=== PATIENT | male | born 1940 | race Caucasian/White ===

== ENCOUNTER 2018-05-18 12:16 | Inpatient (IN) | payer MEDICARE, MEDICAID ==
--- NOTE | 2018-05-18 13:36 | RAD ---
Date of service: 05/18/2018 HISTORY: Cough and fever COMPARISON: No prior. FINDINGS: LUNGS: There appears to be mild central pulmonary venous congestive changes with more confluent opacities in the lower lobes possibly representing alveolar-type infiltrates. Questionable small bilateral effusions.. PLEURA: As above. No pneumothorax apparent. CARDIOVASCULAR: Mild aortic atherosclerotic calcification present. Cardiomegaly. Also again noted are sternotomy wires and multi lead pacemaker/defibrillator. OSSEOUS STRUCTURES: No significant abnormalities. VISUALIZED UPPER ABDOMEN: Normal. OTHER FINDINGS: None. IMPRESSION: There appears to be mild central pulmonary venous congestive changes with more confluent opacities in the lower lobes possibly representing alveolar-type infiltrates. Questionable small bilateral effusions..
[2018-05-18 13:48] LABS: BASO # 0.04 {null, K/mm3} (0.0-2.0); BASO % 0.2 % (0.0-3.0); EOS # 0.2 (0.0-0.7); EOS % 0.9 % (1.5-5.0); HEMOGLOBIN 11.6 g/dL (14.0-18.0); LYMPH # 1.3 (1.2-3.4); MEAN CELL VOLUME 93.5 fl (80.0-105.0); MEAN CORPUSCULAR HEMOGLOBIN 31.6 pg (25.0-35.0); MEAN CORPUSCULAR HGB CONC 33.8 g/dl (31.0-37.0); MONO # 0.7 (0.1-0.6); MONO % 4.2 % (1.0-6.0); RBC 3.67 {null, 10^6/uL} (3.5-6.1); RED CELL DISTRIBUTION WIDTH 13.6 % (11.5-14.5); WHITE BLOOD COUNT 16.4 {null, 10^3/uL} (4.5-11.0)
[2018-05-18 13:52] LABS: VENOUS BLOOD GAS BASE EXCESS 7.8 mmol/L (0.0-2.0); VENOUS BLOOD GAS PO2 70 mm/Hg (30-55); VENOUS BLOOD PH 7.49 (7.32-7.43)
[2018-05-18 14:02] LABS: ALBUMIN 3.7 g/dL (3.0-4.8); ALT/SGPT 19 U/L (7-56); AST/SGOT 35 U/L (17-59); BLOOD UREA NITROGEN 47 mg/dL (7-21); CALCIUM 10.6 mg/dL (8.4-10.5); GFR NON-AFRICAN AMERICAN 49; LIPASE 199 U/L (23-300)
[2018-05-18 14:07] LABS: PARTIAL THROMBOPLASTIN TIME 46.2 Seconds (26.9-38.3)
[2018-05-18 14:14] LABS: B-TYPE NATRIURETIC PEPTIDE 5610 pg/mL (0-450); TROPONIN I 0.05 ng/mL
--- NOTE | 2018-05-18 14:17 | ED PDOC ---
Arrival/HPI - General Chief Complaint: Cough, Cold, Congestion Historian: Patient - History of Present Illness Narrative History of Present Illness (Text): 05/18/18 14:24 A 77 year old male, whose past medical history includes pacemaker, dementia and Parkinson's disease, accompanied by , presents to the emergency department complaining of productive cough, vomiting, and chills for 4 weeks. Patient's reports patient is incontinent at baseline and recently urine has been foul-smelling. Also, patient has recently not been himself, as he is not talking as much as he normally does. also says the patient normally ambulates w/a walker, however now no longer is able to ambulate even with it. denies any falls, fever, or any other complaints at this time. PMD: Dr. Clay Henry Past Medical History - Provider Review Nursing Documentation Reviewed: Yes - Infectious Disease Hx of Infectious Diseases: None - Cardiac Hx Congestive Heart Failure: Yes Hx Hypertension: Yes Hx Pacemaker: Yes (BIV AICD) - Pulmonary Hx Asthma: Yes - Neurological Hx Alzheimer's Disease: Yes - Musculoskeletal/Rheumatological Hx Falls: No - Genitourinary/Gynecological Hx Prostate Problems: Yes - Psychiatric Hx Substance Use: No - Surgical History Hx Coronary Artery Bypass Graft: Yes (?) - Anesthesia Hx Anesthesia: Yes Hx Anesthesia Reactions: No Hx Malignant Hyperthermia: No - Suicidal Assessment Feels Threatened In Home Enviroment: No Family/Social History - Physician Review Nursing Documentation Reviewed: Yes Family/Social History: No Known Family HX Smoking Status: Never Smoked Hx Alcohol Use: No Hx Substance Use: No Allergies/Home Meds Allergies/Adverse Reactions: Allergies morphine Allergy (Verified 05/18/18 12:31) RASH Home Medications: Home Meds Medication Instructions Recorded Confirmed RX: Digoxin 0.125 mg PO DAILY 07/31/14 06/11/17 RX: Donepezil [Aricept] 5 mg PO DAILY 07/31/14 06/11/17 RX: Folic Acid/Vit A/Vit B1/Vit 1 tab PO DAILY 07/31/14 06/11/17 [Multivitamin] RX: Simvastatin 20 mg PO HS 07/31/14 06/11/17 RX: Warfarin Sodium 6 mg PO DAILY 07/31/14 06/11/17 RX: amLODIPine [Norvasc] 5 mg PO DAILY 07/31/14 06/11/17 RX: Tamsulosin HCl [Flomax] 0.4 mg PO DAILY 06/11/17 06/11/17 Review of Systems - Physician Review All systems were reviewed & negative as marked: Yes - Review of Systems Constitutional: Night Sweats Respiratory: Cough (productive) Gastrointestinal: Vomiting Genitourinary Male: Other (incontinence baseline, recently foul-smelling urine.) Physical Exam Vital Signs Reviewed: Yes Vital Signs Temp Pulse Resp BP Pulse Ox 05/18/18 13:53 69 18 117/59 L 96 05/18/18 12:58 100.3 F H 05/18/18 12:27 70 95 05/18/18 12:26 98.9 F 72 18 119/56 L 95 Temperature: Afebrile Blood Pressure: Normal Pulse: Regular Respiratory Rate: Normal Appearance: Positive for: Well-Appearing, Non-Toxic Pain Distress: None Mental Status: No: Alert and Oriented X 3 (alert and oriented x 1) - Systems Exam Head: Present: Atraumatic, Normocephalic Extroacular Muscles: Present: EOMI Conjunctiva: Present: Normal Mouth: Present: Dry Neck: Present: Normal Range of Motion Respiratory/Chest: Present: Wheezes (expiratory), Decreased Breath Sounds (bilaterally). No: Rales, Rhonchi Cardiovascular: Present: Murmurs (systolic) Abdomen: No: Tenderness, Distention, Peritoneal Signs Rectal: No: Nodule/Mass/Lesions Back: Present: Normal Inspection Upper Extremity: Present: Normal Inspection. No: Cyanosis, Edema Lower Extremity: Present: Normal Inspection. No: Edema Neurological: Present: GCS=15, CN II-XII Intact, Speech Normal Skin: Present: Warm, Dry, Normal Color. No: Rashes Psychiatric: Present: Alert. No: Oriented x 3 (oriented x 1) Medical Decision Making ED Course and Treatment: 05/18/18 14:39 Impression: 77 year old male with productive cough, vomiting, and chills Plan: -- EKG -- Venous Blood Gas -- Rocephin -- Blood Culture -- Urine Culture -- Labs -- Chest X-Ray -- Urinalysis -- Influenza A/B -- Reassess and disposition Progress Notes: EKG: Ordered, reviewed, and independently interpreted the EKG. Rate : 72 BPM Rhythm : Pacemaker Interpretation : No ST-segment elevations or depressions, no T-wave inversions, normal intervals. Comparison : No previous EKG for comparison. Pt w/elevated wbc, pna on cxr. Abx ordered. Plan admit for further evaluation and management. 14:50 Case d/w Dr. Hill who accepts pt to her service. - Lab Interpretations Lab Results: pO2 70 mm/Hg (30-55) H 05/18/18 13:30 VBG pH 7.49 (7.32-7.43) H 05/18/18 13:30 VBG pCO2 42.0 (40-60) 05/18/18 13:30 VBG HCO3 32.0 mmol/l (21-28) H 05/18/18 13:30 VBG Total CO2 33.3 mmol.L (22-28) H 05/18/18 13:30 VBG O2 Sat (Calc) 97.0 % (40-65) H 05/18/18 13:30 VBG Base Excess 7.8 mmol/L (0.0-2.0) H 05/18/18 13:30 VBG Potassium 3.6 mmol/L (3.6-5.2) 05/18/18 13:30 Sodium 146.0 mmol/L (132-148) 05/18/18 13:30 Chloride 111.0 mmol/L (98-107) H 05/18/18 13:30 Glucose 124 mg/dl (75-110) H 05/18/18 13:30 Lactate 1.2 mmol/L (0.7-2.1) 05/18/18 13:30 FiO2 21.0 % 05/18/18 13:30 APTT 46.2 Seconds (26.9-38.3) H 05/18/18 13:30 Total Bilirubin 0.7 mg/dL (0.2-1.3) 05/18/18 13:30 AST 35 U/L (17-59) 05/18/18 13:30 ALT 19 U/L (7-56) 05/18/18 13:30 Alkaline Phosphatase 111 U/L (38-126) 05/18/18 13:30 Total Protein 7.5 g/dL (5.8-8.3) 05/18/18 13:30 Albumin 3.7 g/dL (3.0-4.8) 05/18/18 13:30 Globulin 3.8 gm/dL 05/18/18 13:30 Albumin/Globulin Ratio 1.0 (1.1-1.8) L 05/18/18 13:30 Lipase 199 U/L (23-300) 05/18/18 13:30 - RAD Interpretation Radiology Orders: 05/18/18 13:03 CHEST PORTABLE [RAD] Stat - Scribe Statement The provider has reviewed the documentation as recorded by the Anjelica Phillips Provider Scribe Attestation: All medical record entries made by the Maynoribkim were at my direction and personally dictated by me. I have reviewed the chart and agree that the record accurately reflects my personal performance of the history, physical exam, medical decision making, and the department course for this patient. I have also personally directed, reviewed, and agree with the discharge instructions and disposition. Disposition/Present on Arrival - Present on Arrival Any Indicators Present on Arrival: No History of DVT/PE: No History of Uncontrolled Diabetes: No Urinary Catheter: No History of Decub. Ulcer: No - Disposition Have Diagnosis and Disposition been Completed?: Yes Diagnosis: Pneumonia, CHF (congestive heart failure), Dehydration Disposition: HOSPITALIZED Disposition Time: 14:50 Patient Plan: Admission Patient Problems: Current Active Problems Problem Status Onset Dehydration Acute Pneumonia Acute CHF (congestive heart failure) Chronic Condition: STABLE
[2018-05-18 14:21] LABS: PH,URINE 7.5 (4.7-8.0); URINE BILIRUBIN NEGATIVE (NEGATIVE); URINE BLOOD NEGATIVE (NEGATIVE); URINE GLUCOSE (UA) NEGATIVE (NEGATIVE); URINE LEUKOCYTE ESTERASE NEGATIVE Leu/uL (NEGATIVE); URINE PROTEIN NEGATIVE mg/dL (<30 mg/dL)
[2018-05-18] MEDS ORDERED: Azithromycin 500MG/NS 250ml 500 MG/250 ML BAG IVPB STA (14:22)
[2018-05-18 14:26] LABS: URINE APPEARANCE CLEAR (CLEAR); URINE COLOR YELLOW (YELLOW)
[2018-05-18] MEDS ORDERED: cefTRIAXone 1 gm 1 GM/100 ML BAG IVPB ONE (14:30)
[2018-05-18 14:32] LABS: INR 5.16; PROTHROMBIN TIME 58.3 SECONDS (9.4-12.5)
[2018-05-18] MEDS ORDERED: WARFARIN SODIUM 6 MG PO SCH (17:45)
--- NOTE | 2018-05-18 19:58 | CARD ---
APPROVED REPORT Date of service: 05/18/2018 EKG Measurement Heart [id number] <Conclusion> Poor data quality, interpretation may be adversely affected Electronic ventricular pacemaker
[2018-05-18 20:15] LABS: HDL CHOLESTEROL 31 mg/dL (29-60)
[2018-05-18 20:26] LABS: LDL CHOLESTEROL 32 mg/dL (0-129)
[2018-05-18 20:28] LABS: TROPONIN I 0.06 ng/mL
[2018-05-18] MEDS: Albuterol-Ipratrop 3 mg / 0.5 (3 ml) UD IH SCH (21:00)
[2018-05-18 23:42] VITALS: BMI 26.4
[2018-05-19] MEDS: Albuterol-Ipratrop 3 mg / 0.5 (3 ml) UD IH SCH ×4 (02:50→21:39)
[2018-05-19 07:07] LABS: BASO # 0.04 {null, K/mm3} (0.0-2.0); BASO % 0.2 % (0.0-3.0); EOS # 0.1 (0.0-0.7); EOS % 0.6 % (1.5-5.0); HEMOGLOBIN 11.2 g/dL (14.0-18.0); LYMPH # 1.3 (1.2-3.4); LYMPH % 8.1 % (22.0-35.0); MEAN CELL VOLUME 94.7 fl (80.0-105.0); MEAN CORPUSCULAR HEMOGLOBIN 31.2 pg (25.0-35.0); MEAN CORPUSCULAR HGB CONC 32.9 g/dl (31.0-37.0); MEAN PLATELET VOLUME 11.6 fl (7.0-11.0); MONO # 0.9 (0.1-0.6); MONO % 5.8 % (1.0-6.0); RBC 3.59 {null, 10^6/uL} (3.5-6.1); RED CELL DISTRIBUTION WIDTH 13.7 % (11.5-14.5); WHITE BLOOD COUNT 16.2 {null, 10^3/uL} (4.5-11.0)
[2018-05-19 07:20] LABS: INR 4.57; PROTHROMBIN TIME 51.6 SECONDS (9.4-12.5)
[2018-05-19 07:54] LABS: FREE T4 0.85 ng/dL (0.78-2.19)
[2018-05-19 08:58] LABS: ALBUMIN 3.4 g/dL (3.0-4.8); ALT/SGPT 27 U/L (7-56); AST/SGOT 26 U/L (17-59); BLOOD UREA NITROGEN 40 mg/dL (7-21); CALCIUM 10.4 mg/dL (8.4-10.5); GFR NON-AFRICAN AMERICAN 58
[2018-05-19] MEDS: cefTRIAXone 1 gm 1 GM/100 ML BAG IVPB SCH (09:46)
[2018-05-19] MEDS: Azithromycin 500MG/NS 250ml 500 MG/250 ML BAG IVPB SCH (09:46)
--- NOTE | 2018-05-19 10:35 | CT ---
Date of service: 05/18/2018 PROCEDURE: CT HEAD WITHOUT CONTRAST. HISTORY: AMS COMPARISON: No prior study available comparison. TECHNIQUE: Axial computed tomography images were obtained through the head/brain without intravenous contrast. Radiation dose: Total exam DLP = 949.77 mGy-cm. This CT exam was performed using one or more of the following dose reduction techniques: Automated exposure control, adjustment of the mA and/or kV according to patient size, and/or use of iterative reconstruction technique. FINDINGS: HEMORRHAGE: No acute parenchymal, subarachnoid nor extra-axial hemorrhage. BRAIN: There are discrete chronic appearing infarcts seen in the left posterior temporoparietal watershed zone, right frontal lobe as well as left cerebellar hemisphere. Additionally, the there are multiple bilateral chronic appearing lacunar type infarcts. Moderate to significant diffuse and confluent chronic periventricular white matter ischemic changes are also seen extending peripherally into deep and subcortical white matter both cerebral hemispheres. Questionable few chronic brainstem lacunar type infarcts. Note that possibility of a small hyperacute infarct not excluded on this study. Moderate to significant generalized volume loss Vascular calcifications both carotid siphons. No obvious parenchymal nor extra-axial masses or collections. VENTRICLES: No obstructive hydrocephalus. CALVARIUM: Calvarium intact PARANASAL SINUSES: There is mild to moderate mucosal thickening within the ethmoid air complex extending superiorly into the frontal sinus. There is near complete opacification right chamber of the sphenoid sinus. Mild mucosal thickening both maxillary antra. Note made of polypoid like density within the nasopharynx which could represent inspissated secretion however possibility of a exophytic polyp not excluded. ENT consultation is recommended further evaluation. MASTOID AIR CELLS: Unremarkable as visualized. No inflammatory changes. OTHER FINDINGS: The changes of bilateral cataract surgery. IMPRESSION: There are discrete chronic appearing infarcts seen in the left posterior temporoparietal watershed zone, right frontal lobe as well as left cerebellar hemisphere. Additionally, the there are multiple bilateral chronic appearing lacunar type infarcts. Moderate to significant diffuse and confluent chronic periventricular white matter ischemic changes are also seen extending peripherally into deep and subcortical white matter both cerebral hemispheres. Questionable few chronic brainstem lacunar type infarcts. Note that possibility of a small hyperacute infarct not excluded on this study. Moderate to significant generalized volume loss Note made of polypoid like density within the nasopharynx which could represent inspissated secretion however possibility of a exophytic polyp not excluded. ENT consultation is recommended further evaluation.
--- NOTE | 2018-05-19 14:54 | CT ---
Date of service: 05/18/2018 PROCEDURE: CT Chest without contrast HISTORY: Shortness of breath COMPARISON: No prior study available for comparison however correlation made with chest radiograph 05/18/2017. TECHNIQUE: Contiguous axial images were obtained through the chest without intravenous contrast enhancement. Sagittal and coronal reconstructions were performed. Radiation dose: Total exam DLP = 381.29 mGy-cm. This CT exam was performed using one or more of the following dose reduction techniques: Automated exposure control, adjustment of the mA and/or kV according to patient size, and/or use of iterative reconstruction technique. FINDINGS: LUNGS: Patchy bilateral ground-glass opacities are present within a relative batwing configuration. Findings are consistent with pulmonary venous congestion on. More patchy alveolar-type infiltrates present in the lower lobes. Small bilateral effusions right larger than left. MEDIASTINUM: Sternotomy wires and in situ multi lead pacemaker/defibrillator again noted. Heart is markedly enlarged. The ascending thoracic aorta is dilated measuring approximately 0.2 cm. Descending thoracic aorta measures approximately 2.75 cm. Mild aortic atherosclerotic calcification trunk measures approximately 3.4 cm.. There are multiple small to mildly enlarged mediastinal lymph nodes the largest pretracheal lymph node measures approximately 19 mm. Evaluation for hilar adenopathy is limited due to the lack of circulating intravenous contrast material. Trachea midline and patent with no large central endoluminal lesions. There is a small hiatal hernia. PLEURA: No pleural fluid. No pneumothorax. BONES: Multilevel degenerative spondylosis of the thoracic spine. UPPER ABDOMEN: Grossly unremarkable. OTHER FINDINGS: None. IMPRESSION: Patchy bilateral ground-glass opacities are present within a relative batwing configuration. Findings are consistent with pulmonary venous congestion. More patchy alveolar-type infiltrates present in the lower lobes. Small bilateral effusions right larger than left. There is aneurysmal dilatation of the ascending thoracic aorta as above. Marked cardiomegaly. Multiple small to mildly enlarged mediastinal lymph nodes as above.
[2018-05-19] MEDS: Digoxin 125 mcg (0.125 mg) Tab PO SCH (18:08)
--- NOTE | 2018-05-19 19:53 | PN ---
DATE: 05/19/2018 SUBJECTIVE: The patient is a 77-year-old, seen and examined, at the bedside. noticed that his urine is foul smelling, he is coughing for almost a month. His oral intake is poor, so he was brought to ER for further evaluation. PHYSICAL EXAMINATION: GENERAL: He was more lethargic last night, but he seems to be awake and alert and answer simple question, and not in any acute distress. VITAL SIGNS: He is afebrile, pulse 70, respirations 16, and blood pressure 129/50. LUNGS: Bilateral soft crackle in the upper lung region. HEART: S1 and S2 audible. ABDOMEN: Soft and nontender. No rebound. No guarding. NEUROLOGIC: The patient is awake and alert, but confused and disoriented. EXTREMITIES: Bilateral legs no edema. LABORATORY DATA: WBC 16.2, hemoglobin 11.2, hematocrit 34, and platelets 265. PT 51.6 and INR 4.57. Chemistry; sodium 144, potassium 3.9, chloride 109, CO2 of 29, BUN 14, creatinine 1.2, and blood sugar 110. Thyroid profile is negative. Urinalysis is unremarkable. Digoxin level is 1.7. Flu test is negative. He had CT scan of the head done that shows chronic appearing infarct in the left posterior temporoparietal watershed zone and cerebellar hemisphere. Multiple bilateral chronic-appearing lacunar infarct. CT of the chest patchy bilateral ground-glass opacities relatively bilateral ground-glass opacity consistent with pulmonary venous congestion and patchy alveolar infiltrate with small bilateral pleural effusion. ASSESSMENT: 1. Altered mental status. 2. Bilateral pneumonia. 3. Mild congestive heart failure. 4. Parkinson's disease. 5. Hyperlipidemia. PLAN: We will continue the patient on Zithromax, continue on Rocephin, and continue nebulizer treatment. Followup echocardiogram and out of bed to chair. According to family, he has been bed bound, does not walk much, and we will reevaluate the patient in a.m. Melany Hill MD
[2018-05-20 07:08] LABS: BASO # 0.02 {null, K/mm3} (0.0-2.0); BASO % 0.1 % (0.0-3.0); EOS # 0.1 (0.0-0.7); EOS % 0.7 % (1.5-5.0); LYMPH # 1.4 (1.2-3.4); LYMPH % 10.4 % (22.0-35.0); MEAN CELL VOLUME 94.4 fl (80.0-105.0); MEAN CORPUSCULAR HGB CONC 32.8 g/dl (31.0-37.0); MEAN PLATELET VOLUME 10.8 fl (7.0-11.0); MONO % 7.1 % (1.0-6.0); RBC 3.55 {null, 10^6/uL} (3.5-6.1); RED CELL DISTRIBUTION WIDTH 13.5 % (11.5-14.5); WHITE BLOOD COUNT 13.5 {null, 10^3/uL} (4.5-11.0)
[2018-05-20 07:37] LABS: ALB/GLOB RATIO 0.9 (1.1-1.8); ALBUMIN 3.6 g/dL (3.0-4.8); ALT/SGPT 12 U/L (7-56); AST/SGOT 43 U/L (17-59); BLOOD UREA NITROGEN 37 mg/dL (7-21); CALCIUM 9.8 mg/dL (8.4-10.5); GFR NON-AFRICAN AMERICAN > 60
[2018-05-20] MEDS: Albuterol-Ipratrop 3 mg / 0.5 (3 ml) UD IH SCH ×3 (07:50→20:54)
--- NOTE | 2018-05-20 08:17 | HP ---
DATE OF EXAM: 05/18/2018 HISTORY OF PRESENT ILLNESS: The patient is 77-year-old who was brought to emergency room by his because of increasing cough, congestion and fever. He vomited once. He was having intermittent cough for couple of weeks. Daughter was at the bedside. Also reports that he is very increasingly confused and noticed urine is concentrated and foul smelling. His oral intake has decreased also. He has been lately bed bound and has not been working. Although, he used to ambulate somewhat prior to this sickness. PAST MEDICAL HISTORY: Significant for: 1. Parkinson's disease. 2. Hypertension. 3. Hyperlipidemia. 4. Chronic atrial fibrillation. 5. Status post pacemaker placement. ALLERGIES: HE IS ALLERGIC TO MORPHINE. MEDICATION AT HOME: He is on amlodipine 5 mg daily, Coumadin 6 mg daily, Flomax 0.4 daily, simvastatin 20 mg daily, enalapril 5 mg daily, digoxin 0.125 daily, Coreg 12.5 daily, aspirin 81 daily, Lasix 40 mg daily and folic acid. SOCIAL HISTORY: No smoking or drinking as per daughter. PHYSICAL EXAMINATION: GENERAL: He is confused and disoriented. VITAL SIGNS: He has temperature 100.5, pulse 72, respiration 19, blood pressure 122/66. LUNGS: Bilateral fair airflow, expiratory rhonchi. Soft crackle in the lower lung region. HEART: S1 and S2, audible. Tachycardic. ABDOMEN: Soft, nontender. No rebound. No guarding. NEUROLOGIC: He is awake and alert, but confused, disoriented. LABORATORY EXAM: WBC 16.4, hemoglobin 11.6, hematocrit 34.3, platelet 229. PT 58.3 and INR 5.16. Chemistry; sodium 142, potassium 3.8, chloride 107, CO2 of 30, BUN 47, creatinine 1.4, and blood sugar 123 . His CPK less than 20. BNP 5610. Urinalysis is unremarkable. Digoxin level 147. Flu test is negative. CT scan of the head is unremarkable. X-ray chest shows mild central pulmonary investigations with more confluent of the lower lobes possibly representing alveolar infiltrate with bilateral pleural effusion. ASSESSMENT: 1. Community-acquired pneumonia. 2. Leukocytosis. 3. Parkinson's disease. 4. Mild renal insufficiency. 5. Coagulopathy. PLAN: So plan is, we will start him on Iv antibiotics, IV steroids, medications. I will order for CT scan of the chest. Get her a better definition of his infiltrate. Order for echocardiogram and we will reevaluate the patient in a.m. Melany Hill MD
[2018-05-20] MEDS: cefTRIAXone 1 gm 1 GM/100 ML BAG IVPB SCH (11:12)
[2018-05-20] MEDS: Azithromycin 500MG/NS 250ml 500 MG/250 ML BAG IVPB SCH (11:16)
[2018-05-20] MEDS ORDERED: Sodium Chloride 0.45% 1,000 ML IV SCH (12:00)
[2018-05-20] MEDS: Digoxin 125 mcg (0.125 mg) Tab PO SCH (13:43)
--- NOTE | 2018-05-20 15:57 | PN ---
DATE: 05/20/2018 SUBJECTIVE: The patient is 77-year-old, seemed lethargic. According to nurse, he was not able to handle oral tablet or feeding. PHYSICAL EXAMINATION: VITAL SIGNS: He is afebrile, pulse 70, respiration 20, and blood pressure 142/66. LUNGS: Bilateral soft crackle in upper lung region. HEART: S1 and S2 audible. ABDOMEN: Soft and nontender. No rebound. No guarding. NEUROLOGIC: The patient is sleeping, but arousable. Mumbles some words, unable to make any sense. EXTREMITIES: Bilateral leg, no edema. LABORATORY DATA: WBC 13.5, hemoglobin 11, hematocrit 33, and platelets 246. Chemistry; sodium 143, potassium 3.9, chloride 109, CO2 of 29, BUN 37, creatinine 1.1, and blood sugar of 105. Digoxin level is 1.7. Flu test is negative. Blood culture and urine cultures are negative; and according to who was at bedside that he is mostly he stays in the bed. CT scan of the chest shows patchy bilateral ground-glass opacities are present within a relative configuration consistent with pulmonary venous congestion and alveolar infiltrate, and CT of the brain shows subacute chronic infarct in the left posterior temporoparietal area, right frontal lobe, as well as the left cerebellar hemisphere; multiple bilateral chronic-appearing lacunar infarct, moderate to significant diffuse and confluent chronic periventricular white matter ischemic changes and generalized volume loss. ASSESSMENT: 1. Altered mental status. 2. Bilateral pneumonia. 3. Congestive heart failure. 4. History of Parkinson's disease. PLAN: This patient is not tolerating food, we will give IV fluids. Continue him on nebulizer treatment. He is on antibiotic Rocephin. Currently he is on Zithromax and Rocephin, we will continue that. Check his echo and neuro consult by Dr. Natarajan has been requested. Melany Hill MD
--- NOTE | 2018-05-20 15:59 | CARD ---
APPROVED REPORT Date of service: 05/20/2018 EXAM: Two-dimensional and M-mode echocardiogram with Doppler and color Doppler. INDICATION Dizziness and Vertigo 2D DIMENSIONS Left Atrium (2D)5.4 (1.6-4.0cm)IVSd1.6 (0.7-1.1cm) LVDd5.0 (3.9-5.9cm)LVOT Diameter2.3 (1.8-2.4cm) PWd1.7 (0.7-1.1cm) M-Mode DIMENSIONS Aortic Root4.10 (2.2-3.7cm)Aortic Cusp Exc.0.80 (1.5-2.0cm) Aortic Valve AoV Peak Qreeuufi784.0cm/sAoV VTI42.4cmAO Peak GR.22mmHg LVOT Peak Axwompcf68.2cm/sLVOT VTI18.10cmAO Mean GR.12mmHg SARINA (VMAX)1.78fn9TFF (VTI)1.60nw9CW P 1/2 Ektz114ti Mitral Valve E/A ratio0.0 TDI E/Lateral E'0.0E/Medial E'0.0 Pulmonary Valve PV Peak Phxdyqqt51.1cm/sPV Peak Grad.2mmHg Tricuspid Valve TR Peak Xuslqtcj624oa/sRAP FPPHLIPP13mvFcLP Peak Gr.32mmHg [id number] LEFT VENTRICLE The left ventricle is normal size. There is mild to moderate concentric left ventricular hypertrophy. The systolic function is moderately to severely impaired. Regional wall motion abnormalities noted. No left ventricle thrombus noted on this study. RIGHT VENTRICLE The right ventricle is normal size. There is normal right ventricular wall thickness. The right ventricular systolic function is normal. There is a pacemaker lead in the right ventricle. ATRIA The left atrium is moderately dilated. The right atrium is mildly dilated. AORTIC VALVE The aortic valve is moderately thickened. There is moderate to severe aortic regurgitation. There is trace valvular aortic stenosis. MITRAL VALVE The mitral valve is moderately thickened. Mitral regurgitation is moderate to severe. There is no mitral valve stenosis. TRICUSPID VALVE There is mild tricuspid regurgitation. There is mild pulmonary hypertension. GREAT VESSELS The aortic root is mildly enlarged. The IVC is normal in size and collapses >50% with inspiration. PERICARDIAL EFFUSION There is no pericardial effusion. <Conclusion> There is mild to moderate concentric left ventricular hypertrophy. The systolic function is moderately to severely impaired. Regional wall motion abnormalities noted. No left ventricle thrombus noted on this study. There is moderate to severe aortic regurgitation. Mitral regurgitation is moderate to severe. There is mild tricuspid regurgitation. There is mild pulmonary hypertension.
--- NOTE | 2018-05-20 19:28 | CON ---
DATE: 05/20/2018 HISTORY OF PRESENT ILLNESS: This is a 77-year-old male with past medical history of dementia, Parkinson's, and lives with and status post pacemaker. Came to the emergency room with a cough, vomiting, and chills for 4 weeks. Also has incontinent and foul smelling urine. Brought to the hospital. CAT scan of the head was done, which showed old Hard to evaluate the patient. PAST MEDICAL HISTORY: Parkinson's disease, hypertension, AFib, status post permanent pacemaker. ALLERGIES: TO MORPHINE. HOME MEDICATIONS: Dioxin, Aricept, Simvastatin, Warfarin, Norvasc, and Flomax. PHYSICAL EXAMINATION VITAL SIGNS: Blood pressure 119/56. HEENT: Normocephalic and atraumatic NECK: Supple. NEUROLOGIC: Awake, oriented to self, and not to the day and date. No aphasia. Cranial nerves II through XII are tested. Pupils reactive. Spontaneous movement of the extremities noted. Deep tendon reflexes 1+. Both plantars are downgoing. Sensory appears intact. Cerebellar gait deferred. IMPRESSION: A 77-year-old male who was admitted with productive cough, vomiting, and chills. Computerized tomography scan of the head showed old infracts. We will rule out any new stroke and we will repeat the computerized tomography scan of the head without contrast in the morning and carotid Doppler. Continue present management. We will follow up. Caleb Natarajan MD
[2018-05-21] MEDS: Albuterol-Ipratrop 3 mg / 0.5 (3 ml) UD IH SCH ×4 (02:01→20:07)
--- NOTE | 2018-05-21 09:45 | CT ---
Date of service: 05/21/2018 PROCEDURE: CT HEAD WITHOUT CONTRAST. HISTORY: F/U CT REGARDING QUESTIONABLE HYPERACUTE INFARCT COMPARISON: 05/18/2018 TECHNIQUE: Axial computed tomography images were obtained through the head/brain without intravenous contrast. Radiation dose: Total exam DLP = 872.57 mGy-cm. This CT exam was performed using one or more of the following dose reduction techniques: Automated exposure control, adjustment of the mA and/or kV according to patient size, and/or use of iterative reconstruction technique. FINDINGS: HEMORRHAGE: No intracranial hemorrhage. BRAIN: No mass effect or edema. Severe chronic microvascular changes are seen in the periventricular white matter. There is a chronic infarct in the left occipital lobe and right frontal lobe. There is also an old infarct in the left cerebellar hemisphere. No evidence of acute infarct VENTRICLES: Unremarkable. No hydrocephalus. CALVARIUM: Unremarkable. PARANASAL SINUSES: Unremarkable as visualized. No significant inflammatory changes. MASTOID AIR CELLS: Unremarkable as visualized. No inflammatory changes. OTHER FINDINGS: None IMPRESSION: No acute intracranial findings. No evidence of acute infarct
[2018-05-21] MEDS: cefTRIAXone 1 gm 1 GM/100 ML BAG IVPB SCH (09:46)
[2018-05-21] MEDS: Azithromycin 500MG/NS 250ml 500 MG/250 ML BAG IVPB SCH (09:50)
--- NOTE | 2018-05-21 10:01 | US ---
PROCEDURE: Very duplex ultrasound HISTORY: Carotid stenosis CVA PHYSICIAN(S): Chacho Blankenship MD. TECHNIQUE: Duplex sonography and color-flow Doppler were used to evaluate the carotid bifurcations and limited segments of the vertebral arteries bilaterally. Evaluation is limited by tortuous vessels FINDINGS: There is mild focal smooth heterogeneous plaque noted at the carotid bifurcations bilaterally. The peak systolic velocity in the proximal right internal carotid artery is 65 cm/sec. This corresponds to a 20 to 39% proximal right ICA stenosis. Unusual lack of diastolic flow was appreciated in the proximal ICA. Normal systolic velocities are noted in the proximal right external carotid artery. There is antegrade flow in the right vertebral artery. The peak systolic velocity in the proximal left internal carotid artery is 64 cm/sec. This corresponds to a 20 to 39% proximal left ICA stenosis. Once again the diastolic flow in the proximal ICA is minimal. Normal systolic velocities are noted in the proximal left external carotid artery. There is antegrade flow in the left vertebral artery with minimal diastolic flow IMPRESSION: 1. Bilateral 20-39% proximal ICA stenoses. In the proximal ICA bilaterally, there is minimal diastolic flow. This is of uncertain clinical significance 2. Antegrade flow in both vertebral arteries.
--- NOTE | 2018-05-21 12:18 | CP.PCM.PCO ---
Physician Communication Note - Physician Communication Note Physician Communication Note: delirium precautions. Keep bp stable. PT/OT eval.
--- NOTE | 2018-05-21 15:15 | PN ---
DATE: 05/21/2018 SUBJECTIVE: The patient is 77-year-old, seen and examined, seems to be more alert. Has productive cough. PHYSICAL EXAMINATION VITAL SIGNS: He is afebrile, pulse 73, respirations 20, and blood pressure 148/66. LUNGS: Bilateral soft crackle in the upper lung region. HEART: S1 and S2 audible. ABDOMEN: Soft and nontender. No rebound. No guarding. NEUROLOGIC: The patient is awake and alert, answer simple questions, but not . LABORATORY DATA: Urinalysis is unremarkable. Digoxin level is 1.7. Blood culture and urine cultures are negative. questionable old stroke, no new intracranial abnormality noted on repeat scan. ASSESSMENT: 1. Altered mental status., 2. Bilateral pneumonia. 3. Parkinson's disease. 4. Deconditioning and difficulty walking. PLAN: The patient's oral intake seems to be fair as long as somebody feed him. We will discontinue IV fluids. Continue his usual medications. Continue nebulizer treatment. We will continue on Zithromax and Rocephin. We will request for TCU evaluation. If the patient accepted to TCU, he can be transferred. Melany Hill MD
[2018-05-21] MEDS: Digoxin 125 mcg (0.125 mg) Tab PO SCH (15:26)
[2018-05-22] MEDS: Albuterol-Ipratrop 3 mg / 0.5 (3 ml) UD IH SCH ×4 (03:29→21:13)
[2018-05-22 07:07] LABS: BASO # 0.06 {null, K/mm3} (0.0-2.0); BASO % 0.5 % (0.0-3.0); EOS # 0.3 (0.0-0.7); EOS % 2.9 % (1.5-5.0); LYMPH # 1.5 (1.2-3.4); LYMPH % 13.8 % (22.0-35.0); MEAN CELL VOLUME 93.8 fl (80.0-105.0); MEAN CORPUSCULAR HEMOGLOBIN 31.3 pg (25.0-35.0); MEAN CORPUSCULAR HGB CONC 33.3 g/dl (31.0-37.0); MEAN PLATELET VOLUME 10.2 fl (7.0-11.0); MONO # 0.9 (0.1-0.6); MONO % 8.2 % (1.0-6.0); RBC 3.52 {null, 10^6/uL} (3.5-6.1); RED CELL DISTRIBUTION WIDTH 13.5 % (11.5-14.5)
[2018-05-22 07:13] LABS: INR 2.78; PROTHROMBIN TIME 31.4 SECONDS (9.4-12.5)
[2018-05-22 07:24] LABS: ALB/GLOB RATIO 0.9 (1.1-1.8); ALBUMIN 3.3 g/dL (3.0-4.8); ALT/SGPT 55 U/L (7-56); AST/SGOT 74 U/L (17-59); BLOOD UREA NITROGEN 29 mg/dL (7-21); CALCIUM 9.9 mg/dL (8.4-10.5); GFR NON-AFRICAN AMERICAN > 60
[2018-05-22] MEDS: Azithromycin 500MG/NS 250ml 500 MG/250 ML BAG IVPB SCH (09:15)
[2018-05-22] MEDS: cefTRIAXone 1 gm 1 GM/100 ML BAG IVPB SCH (09:15)
--- NOTE | 2018-05-22 14:55 | PN ---
DATE: 05/22/2018 SUBJECTIVE: The patient is 77-year-old, seen and examined. According to the nurse, he looks much more alert. He ate 80%. They tried to ambulate him yesterday, but he dropped his pulse ox rate in 80s. PHYSICAL EXAMINATION: GENERAL: He is awake, alert, oriented, and able to communicate. VITAL SIGNS: He is afebrile, pulse 73, respirations 20, and blood pressure 155/65. LUNGS: Bilateral soft crackle in lower lung region. HEART: S1 and S2 audible. ABDOMEN: Soft and nontender. No rebound. No guarding. NEUROLOGIC: The patient is awake, alert, oriented, and able to communicate. LABORATORY DATA: WBC 11, hemoglobin 11, hematocrit 33, and platelet 235. PT 31.4, INR 2.78. Chemistry: Sodium 144, potassium 3.8, chloride 111, CO2 of 28, BUN 29, creatinine 0.9, blood sugar of 105. AST 74, alk phos 142. Digoxin level is 1.7. Flu test is negative. CT scan of the head is unremarkable. ASSESSMENT: 1. Altered mental status. 2. Bilateral pneumonia. 3. Parkinson's disease. 4. Deconditioning and difficulty walking. 5. Mild dementia. PLAN: Currently, the patient is on Coreg, digoxin, nebulizer treatment. He is on Flomax, Lipitor. He is getting Rocephin and Zithromax. Depending on his therapy evaluation, the patient was be transferred to TCU to complete his course of antibiotic. Continue current medication. We will follow up the patient in the a.m. Melany Hill MD
[2018-05-22] MEDS: Digoxin 125 mcg (0.125 mg) Tab PO SCH (17:46)
[2018-05-23] MEDS: Albuterol-Ipratrop 3 mg / 0.5 (3 ml) UD IH SCH ×4 (01:57→19:52)
[2018-05-23] MEDS: cefTRIAXone 1 gm 1 GM/100 ML BAG IVPB SCH (10:37)
[2018-05-23] MEDS: Azithromycin 500MG/NS 250ml 500 MG/250 ML BAG IVPB SCH (10:38)
--- NOTE | 2018-05-23 14:58 | PN ---
DATE: 05/23/2018 SUBJECTIVE: The patient is 77-year-old, seen and examined, looks more alert, communicative, and eating better. Cough seemed to be improving. PHYSICAL EXAMINATION: VITAL SIGNS: He is afebrile, pulse 69, respiration 20, and blood pressure 146/60. LUNGS: Bilateral soft crackle, improving as compared to when he was admitted, bilaterally pronounced posteriorly. HEART: S1 and S2 audible. ABDOMEN: Soft and nontender. No rebound. No guarding. NEUROLOGIC: The patient is awake and alert, but somewhat confused and disoriented. EXTREMITIES: Bilateral leg, no edema. LABORATORY DATA: WBC 11.0, hemoglobin 11, hematocrit 33, and platelet 235. PT 31.4 and INR 2.78. Chemistry; sodium 144, potassium 3.8, chloride 111, CO2 of 28, BUN 29, creatinine 0.9, and blood sugar of 105. CT scan of the head was done, that seems to be unremarkable. ASSESSMENT: 1. Bilateral pneumonia, improving. 2. Parkinson's disease. 3. History of hypertension. 4. Deconditioning and difficulty walking. PLAN: Currently, the patient is on his usual medications including; digoxin, carvedilol, Aricept 10, Flomax, and he is on Zithromax. Continue Rocephin. TCU evaluation has been requested. If accepted, he can be transferred to TCU for his physical therapy and completion course of antibiotics. Melany Hill MD
[2018-05-23] MEDS: Digoxin 125 mcg (0.125 mg) Tab PO SCH (15:25)
[2018-05-24] MEDS: Albuterol-Ipratrop 3 mg / 0.5 (3 ml) UD IH SCH ×4 (01:17→20:29)
[2018-05-24 06:58] LABS: BASO # 0.05 {null, K/mm3} (0.0-2.0); BASO % 0.6 % (0.0-3.0); EOS # 0.3 (0.0-0.7); EOS % 3.9 % (1.5-5.0); HEMOGLOBIN 10.5 g/dL (14.0-18.0); LYMPH # 1.3 (1.2-3.4); LYMPH % 14.8 % (22.0-35.0); MEAN CELL VOLUME 92.7 fl (80.0-105.0); MEAN CORPUSCULAR HEMOGLOBIN 31.8 pg (25.0-35.0); MEAN CORPUSCULAR HGB CONC 34.3 g/dl (31.0-37.0); MEAN PLATELET VOLUME 10.4 fl (7.0-11.0); MONO # 0.5 (0.1-0.6); MONO % 5.7 % (1.0-6.0); RBC 3.3 {null, 10^6/uL} (3.5-6.1); RED CELL DISTRIBUTION WIDTH 13.3 % (11.5-14.5); WHITE BLOOD COUNT 8.8 {null, 10^3/uL} (4.5-11.0)
[2018-05-24 07:01] LABS: INR 1.74; PROTHROMBIN TIME 19.7 SECONDS (9.4-12.5)
[2018-05-24 07:33] LABS: ALB/GLOB RATIO 0.9 (1.1-1.8); ALBUMIN 3.2 g/dL (3.0-4.8); ALT/SGPT 67 U/L (7-56); AST/SGOT 71 U/L (17-59); BLOOD UREA NITROGEN 25 mg/dL (7-21); CALCIUM 9.6 mg/dL (8.4-10.5); GFR NON-AFRICAN AMERICAN > 60
[2018-05-24] MEDS: cefTRIAXone 1 gm 1 GM/100 ML BAG IVPB SCH (10:47)
[2018-05-24] MEDS: Digoxin 125 mcg (0.125 mg) Tab PO SCH (14:44)
--- NOTE | 2018-05-24 15:25 | PN ---
DATE: 05/24/2018 SUBJECTIVE: The patient is 77-year-old, seen and examined. Looks much more alert, able to communicate. PHYSICAL EXAMINATION: VITAL SIGNS: He is afebrile, pulse 70, respiration 20, and blood pressure 140/60. LUNGS: Bilateral fair airflow. Bilateral crackle seems to be improving. ABDOMEN: Soft and nontender. No rebound. No guarding. NEUROLOGIC: He is awake and alert. Able to communicate, has language barrier though. EXTREMITIES: Bilateral leg, no edema. LABORATORY DATA: WBC is 8.8, hemoglobin 10.5, hematocrit 30.6, and platelet 242. His PT 19.7 and INR 1.74. Chemistry; sodium 138, potassium 4.1, chloride 109, CO2 of 24, BUN 25, creatinine 0.8, and blood sugar of 96. AST 71, ALT 67 and alk phos 143. Digoxin level is 1.7. ASSESSMENT: 1. Status post altered mental status secondary to systemic inflammatory response syndrome. 2. Bilateral pneumonia. 3. History of Parkinson's disease. 4. Deconditioning and difficulty walking. 5. Dementia. 6. Status post pacemaker placement. PLAN: We will continue the patient on current nebulizer treatment. He is on Rocephin and he is on Zithromax. We will continue that. We will give him 8 mg of Coumadin today. We will follow up PT/INR in a.m. Melany Hill MD
[2018-05-25] MEDS: Albuterol-Ipratrop 3 mg / 0.5 (3 ml) UD IH SCH ×4 (02:52→19:36)
[2018-05-25 06:43] LABS: INR 2.12; PROTHROMBIN TIME 23.9 SECONDS (9.4-12.5)
[2018-05-25] MEDS: cefTRIAXone 1 gm 1 GM/100 ML BAG IVPB SCH (11:11)
[2018-05-25] MEDS: Digoxin 125 mcg (0.125 mg) Tab PO SCH ×2 (15:43→15:44)
--- NOTE | 2018-05-25 16:00 | PN ---
DATE: 05/25/2018 SUBJECTIVE: The patient is a 77-year-old, seen and examined, somewhat confused and disoriented, eating well. PHYSICAL EXAMINATION: VITAL SIGNS: He is afebrile. Pulse 70, respirations 18, blood pressure 159/62. LUNGS: Bilateral fair airflow. No rhonchi or crackles. HEART: S1 and S2 audible. ABDOMEN: Soft, nontender. No rebound, no guarding. NEUROLOGICAL: He is awake and alert, but not very communicative, somewhat confused and disoriented. LABORATORY DATA: PT 23.9, INR 2.12. Blood cultures and urine cultures are negative. ASSESSMENT AND PLAN: 1. Status post altered mental status. 2. Parkinson's disease. 3. Bilateral pneumonia. 4. Status post pacemaker placement. PLAN: Currently, the patient is on nebulizer treatment. He is getting Rocephin. He is on Zithromax and will continue that. Continue nebulizer treatment. We will reevaluate the patient in a.m. Melany Hill MD
[2018-05-26] MEDS: Albuterol-Ipratrop 3 mg / 0.5 (3 ml) UD IH SCH ×4 (01:48→20:06)
[2018-05-26] MEDS ORDERED: guaiFENesin DM 100 mg-10 mg/5 ml UD PO ONE (03:13)
[2018-05-26] MEDS: guaiFENesin 200 mg/10 ml Syrup UD PO PRN (08:54)
[2018-05-26] MEDS: cefTRIAXone 1 gm 1 GM/100 ML BAG IVPB SCH (09:21)
[2018-05-26] MEDS: Digoxin 125 mcg (0.125 mg) Tab PO SCH (13:49)
--- NOTE | 2018-05-26 20:32 | PN ---
DATE: 05/26/2018 SUBJECTIVE: The patient does not complain of any chest pain. No shortness of breath. No headache. PHYSICAL EXAMINATION VITAL SIGNS: Temperature is 99.1, pulse of 82, blood pressure is 151/90, respiration is 22. GENERAL: The patient is lying in bed, flat, comfortable. HEENT: No oral lesion. Anicteric sclerae. Moist mucosa. NECK: No JVD, adenopathy, or thyromegaly. CARDIOVASCULAR: S1 and S2, regular. No murmurs, rubs, or gallops. LUNGS: Clear to auscultation bilaterally. No wheeze, rales, or rhonchi. ABDOMEN: Bowel sounds are positive, soft, nontender and nondistended. EXTREMITIES: no cyanosis, clubbing or edema. LABS: White count of 8.8, hemoglobin is 10.5, creatinine 0.8, sodium is 138. ASSESSMENT: 1. Delirium. 2. Parkinson's disease. 3. Pneumonia. 4. Pacemaker placement. 5. Hypertension. 6. Benign prostatic hyperplasia. 7. Dyslipidemia. PLAN: The patient is currently comfortable. He is on Aricept for his dementia. His is on Coumadin. His INR is therapeutic at 2.1. We will continue the same dosage. He is receiving digoxin as well as now Flomax for his BPH. He is on Lipitor for his dyslipidemia. The patient is on Norvasc for his hypertension. He is receiving Rocephin for antibiotics. He is on lisinopril for his hypertension as well. His last white count is normal at 8.8. His LFTs are mildly elevated. We will repeat the patient's blood work tomorrow. Angel Alexander MD
[2018-05-27] MEDS: Albuterol-Ipratrop 3 mg / 0.5 (3 ml) UD IH SCH ×4 (01:28→19:45)
[2018-05-27 07:43] LABS: HEMOGLOBIN 10.1 g/dL (14.0-18.0); MEAN CELL VOLUME 94.5 fl (80.0-105.0); MEAN CORPUSCULAR HEMOGLOBIN 30.8 pg (25.0-35.0); MEAN CORPUSCULAR HGB CONC 32.6 g/dl (31.0-37.0); MEAN PLATELET VOLUME 10.9 fl (7.0-11.0); RBC 3.28 {null, 10^6/uL} (3.5-6.1); RED CELL DISTRIBUTION WIDTH 13.5 % (11.5-14.5); WHITE BLOOD COUNT 12.6 {null, 10^3/uL} (4.5-11.0)
[2018-05-27 09:16] LABS: ALB/GLOB RATIO 0.8 (1.1-1.8); ALBUMIN 3.3 g/dL (3.0-4.8); ALT/SGPT 69 U/L (7-56); AST/SGOT 65 U/L (17-59); BLOOD UREA NITROGEN 25 mg/dL (7-21); CALCIUM 10.2 mg/dL (8.4-10.5); GFR NON-AFRICAN AMERICAN > 60
[2018-05-27] MEDS: cefTRIAXone 1 gm 1 GM/100 ML BAG IVPB SCH (10:09)
[2018-05-27] MEDS: Digoxin 125 mcg (0.125 mg) Tab PO SCH (13:19)
--- NOTE | 2018-05-27 13:32 | RAD ---
Date of service: 05/27/2018 HISTORY: f/up pneumonia COMPARISON: Comparison made with CT chest 05/18/2017 TECHNIQUE: Chest PA and lateral FINDINGS: LUNGS: Patchy infiltrate right upper lobe consistent with pneumonia progressed since prior study minor patchy opacity seen in the right lung base and left mid lung field as well. Possible small bilateral effusions PLEURA: No significant pleural effusion identified. No pneumothorax apparent. CARDIOVASCULAR: Cardiomegaly. Mild aortic atherosclerotic calcification present.. Sternotomy wires CABG clips and multi lead pacemaker/defibrillator unchanged OSSEOUS STRUCTURES: No significant abnormalities. VISUALIZED UPPER ABDOMEN: Normal. OTHER FINDINGS: None. IMPRESSION: Patchy infiltrate right upper lobe consistent with pneumonia progressed since prior study minor patchy opacity seen in the right lung base and left mid lung field as well. Possible small bilateral effusions
--- NOTE | 2018-05-27 13:54 | PN ---
DATE: 05/27/2018 SUBJECTIVE: The patient is 77 years old, seen and examined, lying in bed, seems to be comfortable. Cough is improving. According to nurses, oral intake is poor. PHYSICAL EXAMINATION: VITAL SIGNS: He is afebrile. Pulse 69, respirations 20, blood pressure 160/64. LUNGS: Bilateral soft crackle in upper lung region and that improves by coughing. ABDOMEN: Soft, nontender. No rebound. No guarding. NEUROLOGIC: He is somewhat confused. Answers simple questions. EXTREMITIES: Bilateral leg, no edema. LABORATORY DATA: WBC is 12.6, hemoglobin 10, hematocrit 31, platelets 256. PT is 23.9, INR 2.12. Chemistry: Sodium 143, potassium 4.6, chloride 114, CO2 of 23, BUN 25, creatinine 0.9, blood sugar of 105. AST 65, ALT 69, alk phos is 193. Blood cultures and urine cultures are negative. ASSESSMENT AND PLAN: Leukocytosis, etiology unclear. Abnormal liver function test secondary to antibiotics, rule out abdominal sonogram, rule out cholelithiasis. I will order x-ray of the chest and follow up CBC, CMP, PT/INR in a.m. if her x-ray chest improved, his abdominal sonogram is negative, we will switch medication to p.o. doxycycline and make discharge plan for the morning and follow up in a.m. Melany Hill MD
[2018-05-28] MEDS: Albuterol-Ipratrop 3 mg / 0.5 (3 ml) UD IH SCH ×4 (02:11→19:25)
--- NOTE | 2018-05-28 06:44 | CP.PCM.PN ---
Subjective - Date & Time of Evaluation Date of Evaluation: 05/28/18 Time of Evaluation: 06:43 - Subjective Subjective: tbd co-sign ativan 0.5 mg iv x 1 pt seen restlessness. Objective - Vital Signs/Intake and Output Vital Signs (last 24 hours): Temp Pulse Resp BP Pulse Ox 97.9 F 68 20 136/59 L 97 05/27/18 17:02 05/27/18 17:02 05/27/18 17:02 05/27/18 17:02 05/27/18 17:02 Intake and Output: 05/27/18 05/28/18 18:59 06:59 Intake Total 1080 Output Total 1000 Balance 80 - Medications Medications: Current Medications Acetaminophen (Tylenol 325 Mg Supp) 325 mg RC DAILY [facility] Last Admin: 05/27/18 10:09 Dose: Not Given Acetaminophen (Tylenol 325mg Tab) 650 mg PO Q4H PRN PRN Reason: Pain, moderate (4-7) Last Admin: 05/26/18 08:53 Dose: 650 mg Albuterol/Ipratropium (Duoneb 3 Mg/0.5 Mg (3 Ml) Ud) 3 ml IH Q2H PRN PRN Reason: Shortness of Breath Albuterol/Ipratropium (Duoneb 3 Mg/0.5 Mg (3 Ml) Ud) 3 ml IH [id number] [facility] Last Admin: 05/28/18 02:11 Dose: 3 ml Amlodipine Besylate (Norvasc) 5 mg PO DAILY [facility] Last Admin: 05/27/18 10:08 Dose: 5 mg Aspirin (Aspirin Chewable) 81 mg PO DAILY [facility] Last Admin: 05/27/18 10:08 Dose: 81 mg Atorvastatin Calcium (Lipitor) 10 mg PO DIN [facility] Last Admin: 05/27/18 17:33 Dose: 10 mg Azithromycin (Zithromax) 500 mg PO DAILY [facility] Last Admin: 05/27/18 10:08 Dose: 500 mg Carvedilol (Coreg) 12.5 mg PO BID [facility] Last Admin: 05/27/18 17:33 Dose: 12.5 mg Digoxin (Digoxin) 0.125 mg PO 1400 [facility] Last Admin: 05/27/18 13:19 Dose: 0.125 mg Donepezil HCl (Aricept) 5 mg PO DAILY [facility] Last Admin: 05/27/18 10:08 Dose: 5 mg Guaifenesin (Robitussin) 100 mg PO Q6H PRN PRN Reason: Cough and congestion Last Admin: 05/26/18 08:54 Dose: 100 mg Ceftriaxone Sodium (Rocephin 1 Gram Ivpb) 1 gm in 100 mls @ 100 mls/hr IVPB DAILY [facility]; Protocol Stop: 05/28/18 10:59 Last Admin: 05/27/18 10:09 Dose: 100 mls/hr Lisinopril (Zestril) 5 mg PO DAILY [facility] Last Admin: 05/27/18 10:07 Dose: 5 mg Tamsulosin HCl (Flomax) 0.4 mg PO DAILY [facility] Last Admin: 05/27/18 10:08 Dose: 0.4 mg Warfarin Sodium (Coumadin) 5 mg PO 1800 [facility]; Protocol Last Admin: 05/27/18 17:33 Dose: 5 mg - Labs Labs: 05/27/18 07:00 05/27/18 07:00 PT 23.9 SECONDS (9.4-12.5) H 05/25/18 05:00 INR 2.12 05/25/18 05:00 APTT 46.2 Seconds (26.9-38.3) H 05/18/18 13:30
[2018-05-28 06:48] LABS: INR 3.23; PROTHROMBIN TIME 36.5 SECONDS (9.4-12.5)
[2018-05-28 06:51] LABS: BASO # 0.05 {null, K/mm3} (0.0-2.0); BASO % 0.5 % (0.0-3.0); EOS # 0.2 (0.0-0.7); EOS % 2.2 % (1.5-5.0); LYMPH # 1.3 (1.2-3.4); LYMPH % 11.9 % (22.0-35.0); MEAN CELL VOLUME 94.3 fl (80.0-105.0); MEAN CORPUSCULAR HEMOGLOBIN 30.2 pg (25.0-35.0); MEAN PLATELET VOLUME 10.2 fl (7.0-11.0); MONO # 0.8 (0.1-0.6); RBC 2.98 {null, 10^6/uL} (3.5-6.1); RED CELL DISTRIBUTION WIDTH 13.7 % (11.5-14.5); WHITE BLOOD COUNT 10.8 {null, 10^3/uL} (4.5-11.0)
[2018-05-28 07:09] LABS: ALB/GLOB RATIO 0.8 (1.1-1.8); ALT/SGPT 53 U/L (7-56); AST/SGOT 53 U/L (17-59); BLOOD UREA NITROGEN 24 mg/dL (7-21); CALCIUM 9.5 mg/dL (8.4-10.5); GFR NON-AFRICAN AMERICAN > 60
[2018-05-28] MEDS: cefTRIAXone 1 gm 1 GM/100 ML BAG IVPB SCH (10:02)
--- NOTE | 2018-05-28 12:12 | CON ---
DATE: 05/28/2018 REASON FOR PULMONARY CONSULTATION: Pneumonia. REFERRING PHYSICIAN: Dr. Hill. History is obtained via extensive discussion with the nurse. I have also reviewed the chart at length. The patient is not an adequate historian at this point in time. HISTORY OF PRESENT ILLNESS: The patient is a chronically ill 77-year-old male, with past medical history significant for advanced dementia, Parkinson's disease, hypertension, hyperlipidemia, chronic atrial fibrillation, status post pacemaker, who presented to [facility] - originally on 05/18/2018 - with shortness of breath at rest, dyspnea on exertion, and cough. There is no history of significant sputum production. There is no history of chest pain, coughing up of blood, or chest pain - brought on with deep respirations. The patient did present with low grade fevers. No history of chills or infectious exposure. No history of night sweats, weight loss, or appetite change prior to the above events. No history of calf pains. No history of syncope or diaphoresis. No history of recent travel or trauma. REVIEW OF SYSTEMS: The patient did have an episode of nausea and vomiting at home. No diarrhea. As per the ER notes, the patient also had some foul-smelling urine. No new musculoskeletal complaints. Rest of the review of systems is negative. ALLERGIES: ALLERGY TO MORPHINE. SOCIAL HISTORY: Positive for former tobacco usage. No alcohol. FAMILY HISTORY: No inheritable diseases. MEDICATIONS: Home medications include Norvasc, warfarin, Flomax, simvastatin, Vasotec, Aricept, digoxin, carvedilol, Lasix, and multivitamins. PHYSICAL EXAMINATION: GENERAL: The patient appears comfortable this morning. He is not short of breath at rest. VITAL SIGNS: Temperature is 97.8, pulse is 70, respirations 20, blood pressure 144/63. Oxygen saturation on nasal cannula 96-97%. HEENT: Normocephalic, atraumatic. No JVD. CARDIOVASCULAR: Systolic ejection murmur at the lower left sternal border. No S3 gallop. LUNGS: Crackles at both bases. Minimal bilateral rhonchi. No wheezing. EXTREMITIES: Mild edema. No cyanosis. No clubbing. Calves are nontender to palpation. GI: Abdomen is soft, nontender, and nondistended. Bowel sounds are positive. SKIN: No acute rash. NEUROLOGIC: Exam limited at the present time. PERTINENT LABORATORY DATA: Chest x-ray was done yesterday and reviewed. I also compared the chest x-ray done yesterday to the chest x-ray done on 05/18/2018. The chest x-ray done yesterday shows a definite worsening of right upper lobe infiltrates. There is also underlying mild pulmonary vascular congestion. CAT scan of the chest was also done on 05/18/2018. The CAT scan of the chest does show a small right upper lobe infiltrate. However, the infiltrates on CAT scan are basically perihilar in nature. There are also small bilateral pleural effusions. CBC: White count 10.8K, hemoglobin 9, hematocrit 28.1, platelets of 267,000. Complete Metabolic Profile: Chloride 112, BUN 24, alkaline phosphatase 153. Rest of the metabolic profile is within normal limits. IMPRESSION: 1. Worsening right upper lobe pneumonia. 2. Acute congestive heart failure. 3. Bilateral pleural effusions. 4. Mild bronchospasm. 5. Anemia. PLAN: Again, I did discuss the case with the nurse at length. I have also reviewed the chart at length. The patient is not an adequate historian at this point in time. The patient did present to [facility] - originally on 05/18/2018 - with main complaints of shortness of breath at rest, dyspnea on exertion, and cough. The patient also presented with low grade fevers. He was thus admitted for additional evaluation. I did review the chest x-rays, as well as the CAT scan of the chest. Findings are noted above. In short, the CAT scan of the chest is most consistent with congestive heart failure with small bilateral pleural effusions. As above, there is a small infiltrate noted in the right upper lobe. I have also reviewed the last chest x-ray - done yesterday. There is definite worsening of the right upper lobe infiltrates. Infectious Disease has been reconsulted on this case. Due to the patient's lethargy and overall weak status, the patient is at risk for aspiration pneumonia. I will start aspiration precautions. Interesting to note, the fevers have fully resolved. The leukocytosis has also fully resolved. On physical exam, there is only mild bronchospasm noted. However, there is no significant alveolar-arterial gradient. I will continue the current nebulizer treatments for now. The patient's clinical status is certainly guarded at this point in time. His overall status/prognosis does appear poor. I will discuss the above with the attending physician. Thank you very much for this pulmonary consultation. Deondre Mack MD [employer]
[2018-05-28] MEDS: Cefepime 1gm in NS 100ml 1 GM/100 ML BAG IVPB SCH ×2 (12:41→22:03)
[2018-05-28] MEDS: Vancomycin 1gm in NS 250ml 1 GM/250 ML BAG IVPB SCH (12:42)
[2018-05-28] MEDS: Digoxin 125 mcg (0.125 mg) Tab PO SCH (13:10)
--- NOTE | 2018-05-28 15:39 | US ---
Date of service: 05/27/2018 HISTORY: abnormal LFT COMPARISON: None available. TECHNIQUE: Sonographic evaluation of the abdomen. FINDINGS: LIVER: Liver is heterogeneous in echogenicity. This limits evaluation for small masses. No focal large liver mass is identified. No intrahepatic biliary ductal dilatation is identified. Portal vein is patent with normal hepatopetal flow. GALLBLADDER: The gallbladder is incompletely distended. No gallstones, gallbladder wall thickening, or pericholecystic fluid is identified.No sonographic Ibanez's sign was appreciated during the exam. COMMON BILE DUCT: Normal in caliber measuring 0.5 cm. PANCREAS: The visualized portions are unremarkable in echogenicity. The remainder of the pancreas is obscured by bowel gas. RIGHT KIDNEY: Measures 11.4cm. Unremarkable in echogenicity. There is a 1.5 cm cyst. No shadowing renal stone or hydronephrosis is identified LEFT KIDNEY: Measures 9.5cm. Unremarkable in echogenicity. There is a 4.5 cm cyst. No shadowing renal stone or hydronephrosis is identified SPLEEN: Measures 8 cm. Normal in size and unremarkable in echotexture. AORTA: No aneurysmal dilatation of the visualized portions. IVC: Visualized portions are unremarkable.. OTHER FINDINGS: Partially visualized right pleural effusion. IMPRESSION: Heterogeneous liver. Bilateral renal cysts. Partially visualized right pleural effusion.
--- NOTE | 2018-05-28 15:49 | CP.PCM.CON ---
History of Present Illness - History of Present Illness History of Present Illness: 77 year old male with PMH of dementia, Parkinson's disease, S/P pacemaker placement came in to [facility] because of cough associated with occasional vomiting, which was ongoing for several weeks. There was no note of diarrhea, no chest pain, no SOB at rest. The patient was started on Azithromycin but continues to have cough. CXR was repeated which is showing patchy right upper lobe infiltrate, which was not prominent on initial CXR. Infectious Diseases consult is requested to further evaluate and manage. Review of Systems - Review of Systems All systems: reviewed and no additional remarkable complaints except (as per HPI) Past Patient History - Infectious Disease Hx of Infectious Diseases: None - Past Medical History & Family History Past Medical History?: Yes - Past Social History Smoking Status: Never Smoked - CARDIAC Hx Cardiac Disorders: Yes Hx Hypertension: Yes - PULMONARY Hx Asthma: Yes - NEUROLOGICAL Hx Alzheimer's Disease: Yes - MUSCULOSKELETAL/RHEUMATOLOGICAL Hx Falls: No - GENITOURINARY/GYNECOLOGICAL Hx Prostate Problems: Yes - PSYCHIATRIC Hx Substance Use: No - SURGICAL HISTORY Hx Coronary Artery Bypass Graft: Yes (?) - ANESTHESIA Hx Anesthesia: Yes Hx Anesthesia Reactions: No Hx Malignant Hyperthermia: No Meds Allergies/Adverse Reactions: Allergies Allergy/AdvReac Type Severity Reaction Status Date / Time morphine Allergy RASH Verified 05/18/18 12:31 - Medications Medications: Current Medications Acetaminophen (Tylenol 325 Mg Supp) 325 mg RC DAILY [facility] Last Admin: 05/28/18 10:04 Dose: Not Given Acetaminophen (Tylenol 325mg Tab) 650 mg PO Q4H PRN PRN Reason: Pain, moderate (4-7) Last Admin: 05/28/18 10:56 Dose: 650 mg Albuterol/Ipratropium (Duoneb 3 Mg/0.5 Mg (3 Ml) Ud) 3 ml IH Q2H PRN PRN Reason: Shortness of Breath Albuterol/Ipratropium (Duoneb 3 Mg/0.5 Mg (3 Ml) Ud) 3 ml IH [id number] [facility] Last Admin: 05/28/18 07:28 Dose: 3 ml Amlodipine Besylate (Norvasc) 5 mg PO DAILY [facility] Last Admin: 05/28/18 10:02 Dose: 5 mg Aspirin (Aspirin Chewable) 81 mg PO DAILY [facility] Last Admin: 05/28/18 10:03 Dose: 81 mg Atorvastatin Calcium (Lipitor) 10 mg PO DIN [facility] Last Admin: 05/27/18 17:33 Dose: 10 mg Azithromycin (Zithromax) 500 mg PO DAILY [facility] Last Admin: 05/28/18 10:02 Dose: 500 mg Carvedilol (Coreg) 12.5 mg PO BID [facility] Last Admin: 05/28/18 10:02 Dose: 12.5 mg Digoxin (Digoxin) 0.125 mg PO 1400 [facility] Last Admin: 05/27/18 13:19 Dose: 0.125 mg Donepezil HCl (Aricept) 5 mg PO DAILY [facility] Last Admin: 05/28/18 10:03 Dose: 5 mg Guaifenesin (Robitussin) 100 mg PO Q6H PRN PRN Reason: Cough and congestion Last Admin: 05/26/18 08:54 Dose: 100 mg Lisinopril (Zestril) 5 mg PO DAILY [facility] Last Admin: 05/28/18 10:02 Dose: 5 mg Tamsulosin HCl (Flomax) 0.4 mg PO DAILY [facility] Last Admin: 05/28/18 10:02 Dose: 0.4 mg Warfarin Sodium (Coumadin) 5 mg PO 1800 [facility]; Protocol Last Admin: 05/27/18 17:33 Dose: 5 mg Physical Exam - Constitutional Appears: Chronically Ill - Head Exam Head Exam: NORMAL INSPECTION - ENT Exam ENT Exam: Mucous Membranes Moist - Neck Exam Neck exam: Negative for: Meningismus - Respiratory Exam Respiratory Exam: Decreased Breath Sounds - Cardiovascular Exam Cardiovascular Exam: +S1, +S2 - GI/Abdominal Exam GI & Abdominal Exam: Soft. absent: Tenderness Results - Vital Signs Recent Vital Signs: Last Vital Signs Temp 97.8 F 05/28/18 06:00 Pulse 70 05/28/18 06:00 Resp 20 05/28/18 06:00 BP 144/63 05/28/18 06:00 Pulse Ox 96 05/28/18 06:00 - Labs Result Diagrams: 05/28/18 06:15 05/28/18 06:15 Labs: Laboratory Results - last 24 hr 05/28/18 05/28/18 05/28/18 06:15 06:15 06:15 WBC 10.8 RBC 2.98 L Hgb 9.0 L Hct 28.1 L MCV 94.3 MCH 30.2 MCHC 32.0 RDW 13.7 Plt Count 267 MPV 10.2 Neut % (Auto) 78.4 H Lymph % (Auto) 11.9 L [place] % (Auto) 7.0 H Eos % (Auto) 2.2 Baso % (Auto) 0.5 Lymph # (Auto) 1.3 [place] # (Auto) 0.8 H Eos # (Auto) 0.2 Baso # (Auto) 0.05 Absolute Neuts (auto) 8.47 H PT 36.5 H INR 3.23 Sodium 140 Potassium 4.6 Chloride 112 H Carbon Dioxide 25 Anion Gap 7 L BUN 24 H Creatinine 0.9 Est GFR ( Amer) > 60 Est GFR (Non-Af Amer) > 60 Random Glucose 101 Calcium 9.5 Total Bilirubin 0.7 AST 53 ALT 53 Alkaline Phosphatase 153 H D Total Protein 6.7 Albumin 3.0 Globulin 3.7 Albumin/Globulin Ratio 0.8 L Assessment & Plan - Assessment and Plan (Free Text) Plan: Assessment right sided HCAP, with risk for aspiration dementia Parkinson's disease S/P pacemaker placement Plan will continue Zithromax and will start Vancomycin and Cefepime and will repeat blood cx, get sputum cx, get PCT will monitor clinically will discuss with Dr. Mack
--- NOTE | 2018-05-28 16:50 | PN ---
DATE: 05/28/2018 SUBJECTIVE: The patient is 77-year-old, seen and examined. Seem to be confused and disoriented. Oral intake is very poor. Still has scanty cough. PHYSICAL EXAMINATION: VITAL SIGNS: He is afebrile. Pulse 70, respiration 20 and blood pressure 144/63. LUNGS: Bilateral fair airflow in upper lung region, has soft crackle at bases. HEART: S1 and S2, audible. ABDOMEN: Soft and nontender. No rebound. No guarding. NEUROLOGICAL: He is confused and disoriented. EXTREMITIES: Bilateral leg no edema. LABORATORY DATA: WBC 10.8, hemoglobin 9.0, hematocrit 28.1 and platelet of 267. PT 36.5 and INR 3.23. Chemistry; sodium 140, potassium 4.6, chloride 112, CO2 of 25, BUN 24 and creatinine 0.9. His AST and ALT has normalized. Blood cultures and urine cultures are negative. He has abdominal sonogram done that is pending. He had repeat x-ray done that shows infiltrate. The infiltrate right upper lobe consistent pneumonia . ASSESSMENT: 1. Right upper lung infiltrate. 2. Altered mental status. 3. Parkinson's disease. 4. . 5. Dementia. 6. Leukocytosis, improving. 7. Status post pacemaker placement. PLAN: Pulmonary consult and ID consult has been requested. We will continue otherwise on current medication. The patient has started on Cefepime. He is on Zithromax. We will discuss with other business consultant. He can be transferred to TCU to complete his course of antibiotics and his physical therapy. Melany Hill MD
[2018-05-28] MEDS: guaiFENesin 200 mg/10 ml Syrup UD PO PRN (22:04)
[2018-05-29] MEDS: Vancomycin 1gm in NS 250ml 1 GM/250 ML BAG IVPB SCH ×2 (00:33→13:07)
[2018-05-29] MEDS: Albuterol-Ipratrop 3 mg / 0.5 (3 ml) UD IH SCH ×4 (02:40→20:35)
[2018-05-29] MEDS: Cefepime 1gm in NS 100ml 1 GM/100 ML BAG IVPB SCH ×3 (05:04→21:30)
--- NOTE | 2018-05-29 12:46 | PN ---
DATE: 05/29/2018 PULMONARY PROGRESS NOTE SUBJECTIVE: The patient was seen and examined at bedside. He appears slightly sleepy, but response appropriately. He is not on respiratory distress. The patient is receiving triple antibiotic therapy with azithromycin, vancomycin and cefepime. He is also on inhalation therapy. PHYSICAL EXAMINATION: VITAL SIGNS: His temperature is 98.8, pulse is 74, respirations 20 and pulse oximetry is 96 on nasal cannula. HEENT: Head is normocephalic and atraumatic. NECK: Suppler with no jugular vein distention. CARDIOVASCULAR: S1 and S2. No S3, regular. PULMONARY: Diminished breath sounds at both lung bases with no rhonchi, rales or wheezing. GASTROINTESTINAL: Soft and nontender. There is no organomegaly. EXTREMITIES: 1+ pedal edema. SKIN: No acute skin rash. NEUROLOGIC: Limited at present time. ASSESSMENT: 1. Worsening right upper lobe pneumonia. 2. Acute congestive heart failure. 3. Bilateral pleural effusions. 4. Resolving bronchospasm. PLAN: CT scan was reviewed Yesterday by Dr. Mack, it appears consistent with congestive heart failure, bilateral pleural effusions as well as pneumonia. He is now on triple antibiotic therapy as well as therapy for bronchospasm and congestive heart failure. All of this measures will continue. His condition remains extremely guarded. Zackery Hay MD
--- NOTE | 2018-05-29 14:54 | CP.PCM.PN ---
Subjective - Date & Time of Evaluation Date of Evaluation: 05/29/18 Time of Evaluation: 11:15 - Subjective Subjective: A little more awake today, not in distress, no fevers. Objective - Vital Signs/Intake and Output Vital Signs (last 24 hours): Temp Pulse Resp BP Pulse Ox 97.8 F 70 20 144/63 96 05/28/18 06:00 05/28/18 06:00 05/28/18 06:00 05/28/18 06:00 05/28/18 06:00 Intake and Output: 05/28/18 05/28/18 06:59 18:59 Intake Total 1080 Output Total 1000 Balance 80 - Medications Medications: Current Medications Acetaminophen (Tylenol 325 Mg Supp) 325 mg RC DAILY [facility] Last Admin: 05/28/18 10:04 Dose: Not Given Acetaminophen (Tylenol 325mg Tab) 650 mg PO Q4H PRN PRN Reason: Pain, moderate (4-7) Last Admin: 05/28/18 10:56 Dose: 650 mg Albuterol/Ipratropium (Duoneb 3 Mg/0.5 Mg (3 Ml) Ud) 3 ml IH Q2H PRN PRN Reason: Shortness of Breath Albuterol/Ipratropium (Duoneb 3 Mg/0.5 Mg (3 Ml) Ud) 3 ml IH [id number] [facility] Last Admin: 05/28/18 13:36 Dose: 3 ml Amlodipine Besylate (Norvasc) 5 mg PO DAILY [facility] Last Admin: 05/28/18 10:02 Dose: 5 mg Aspirin (Aspirin Chewable) 81 mg PO DAILY [facility] Last Admin: 05/28/18 10:03 Dose: 81 mg Atorvastatin Calcium (Lipitor) 10 mg PO DIN [facility] Last Admin: 05/27/18 17:33 Dose: 10 mg Azithromycin (Zithromax) 500 mg PO DAILY [facility] Last Admin: 05/28/18 10:02 Dose: 500 mg Carvedilol (Coreg) 12.5 mg PO BID [facility] Last Admin: 05/28/18 10:02 Dose: 12.5 mg Digoxin (Digoxin) 0.125 mg PO 1400 [facility] Last Admin: 05/28/18 13:10 Dose: 0.125 mg Donepezil HCl (Aricept) 5 mg PO DAILY [facility] Last Admin: 05/28/18 10:03 Dose: 5 mg Guaifenesin (Robitussin) 100 mg PO Q6H PRN PRN Reason: Cough and congestion Last Admin: 05/26/18 08:54 Dose: 100 mg Cefepime HCl (Maxipime 1gm) 1 gm in 100 mls @ 100 mls/hr IVPB Q8 [facility]; Protocol Last Admin: 05/28/18 12:41 Dose: 100 mls/hr Vancomycin HCl (Vancomycin 1gm) 1 gm in 250 mls @ 167 mls/hr IVPB Q12H [facility]; Protocol Last Admin: 05/28/18 12:42 Dose: 167 mls/hr Lisinopril (Zestril) 5 mg PO DAILY [facility] Last Admin: 05/28/18 10:02 Dose: 5 mg Tamsulosin HCl (Flomax) 0.4 mg PO DAILY [facility] Last Admin: 05/28/18 10:02 Dose: 0.4 mg Warfarin Sodium (Coumadin) 1 mg PO 1800 [facility] - Labs Labs: 05/28/18 06:15 05/28/18 06:15 PT 36.5 SECONDS (9.4-12.5) H 05/28/18 06:15 INR 3.23 05/28/18 06:15 APTT 46.2 Seconds (26.9-38.3) H 05/18/18 13:30 - Constitutional Appears: Chronically Ill - Head Exam Head Exam: NORMAL INSPECTION - Respiratory Exam Respiratory Exam: Decreased Breath Sounds - Cardiovascular Exam Cardiovascular Exam: +S1, +S2 - GI/Abdominal Exam GI & Abdominal Exam: Soft. absent: Tenderness Assessment and Plan - Assessment and Plan (Free Text) Plan: Assessment right sided HCAP, with risk for aspiration dementia Parkinson's disease S/P pacemaker placement Plan will continue Zithromax and continue Vancomycin and Cefepime day 2; repeat blood cx are negative so far, follow up sputum cx, PCT will continue to monitor clinically
[2018-05-29] MEDS: guaiFENesin 200 mg/10 ml Syrup UD PO PRN (15:01)
[2018-05-29] MEDS: Digoxin 125 mcg (0.125 mg) Tab PO SCH (15:01)
[2018-05-29 16:45] LABS: PROTHROMBIN TIME 39.4 SECONDS (9.4-12.5)
[2018-05-29 17:10] LABS: INR 3.55
--- NOTE | 2018-05-29 21:51 | PN ---
DATE: 05/29/2018 SUBJECTIVE: The patient is 77 years old, seen and examined. Confused and disoriented. Still has cough. No nausea or vomiting. No diarrhea. PHYSICAL EXAMINATION: VITAL SIGNS: The patient is afebrile, pulse 74, respirations 18 and blood pressure 146/70. LUNGS: Bilateral fair airflow. Occasional expiratory rhonchi. HEART: S1 and S2 audible. ABDOMEN: Soft and nontender. No rebound. No guarding. NEUROLOGIC: The patient is awake and alert, confused and disoriented. LABORATORY DATA: Blood cultures and urine cultures are negative. PT 39.4 and INR 3.55. ASSESSMENT: 1. Bilateral infiltrates. 2. Altered mental status. 3. Parkinson disease. 4. Metabolic encephalopathy. 5. Poor oral intake. PLAN: Currently, the patient is on cefepime. He is getting antitussive. He is on vancomycin. He is on Zithromax. We will hold his Coumadin for today. We will follow up with the INR in a.m. I will discuss with Sales Performance Manager if we can transfer the patient to TCU to finish his course of antibiotic therapy. Melany Hill MD
[2018-05-30] MEDS: Vancomycin 1gm in NS 250ml 1 GM/250 ML BAG IVPB SCH ×3 (00:20→22:57)
[2018-05-30] MEDS: guaiFENesin 200 mg/10 ml Syrup UD PO PRN (01:50)
[2018-05-30] MEDS: Albuterol-Ipratrop 3 mg / 0.5 (3 ml) UD IH SCH ×5 (01:55→20:53)
[2018-05-30] MEDS: Cefepime 1gm in NS 100ml 1 GM/100 ML BAG IVPB SCH ×3 (05:21→21:29)
[2018-05-30 07:09] LABS: BASO # 0.07 {null, K/mm3} (0.0-2.0); BASO % 0.7 % (0.0-3.0); EOS # 0.4 (0.0-0.7); EOS % 3.6 % (1.5-5.0); HEMOGLOBIN 9.1 g/dL (14.0-18.0); LYMPH # 1.1 (1.2-3.4); LYMPH % 10.7 % (22.0-35.0); MEAN CELL VOLUME 94.9 fl (80.0-105.0); MEAN CORPUSCULAR HEMOGLOBIN 30.6 pg (25.0-35.0); MEAN CORPUSCULAR HGB CONC 32.3 g/dl (31.0-37.0); MEAN PLATELET VOLUME 10.4 fl (7.0-11.0); MONO % 9.6 % (1.0-6.0); RBC 2.97 {null, 10^6/uL} (3.5-6.1); RED CELL DISTRIBUTION WIDTH 13.6 % (11.5-14.5); WHITE BLOOD COUNT 10.3 {null, 10^3/uL} (4.5-11.0)
[2018-05-30 07:14] LABS: INR 2.7; PROTHROMBIN TIME 30.5 SECONDS (9.4-12.5)
[2018-05-30 07:29] LABS: ALB/GLOB RATIO 0.8 (1.1-1.8); ALT/SGPT 47 U/L (7-56); AST/SGOT 49 U/L (17-59); BLOOD UREA NITROGEN 23 mg/dL (7-21); CALCIUM 9.9 mg/dL (8.4-10.5); GFR NON-AFRICAN AMERICAN > 60
[2018-05-30] MEDS: POLYETHYLENE GLYCOL 3350 17 GM/Dose PACKET PO SCH (09:56)
--- NOTE | 2018-05-30 11:28 | PN ---
DATE: 05/30/2018 SUBJECTIVE: The patient remains in bed, sleeping. He does not appear to be in any respiratory distress. The chart has been reviewed and the case discussed with the registered nurse and inhalation therapist. PHYSICAL EXAMINATION: VITAL SIGNS: Remain stable. The patient is afebrile, heart rate 76, respiratory rate 18 and pulse oximetry 96% on supplemental oxygen. HEENT: Normocephalic, atraumatic. NECK: Supple. No JVD. No lymphadenopathy. CARDIOVASCULAR: Regular rhythm. S1, S2 without murmur, gallop or rub. LUNGS: Global decrease in breath sounds. Minimal rhonchi heard. No rales or wheezes appreciated. ABDOMEN: Soft. Bowel sounds normoactive without mass, guarding, rebound or organomegaly. EXTREMITIES: Trace edema. SKIN: No rash or excoriation. NEUROLOGIC: Unable to further evaluate. CLINICAL IMPRESSION: 1. Right upper lobe pneumonia. 2. Pulmonary vascular congestion/congestive heart failure. 3. Bilateral pleural effusions. 4. Resolved bronchospasm. PLAN: CT of the chest has been reviewed. The patient is on antibiotics and treatment for his congestive heart failure. Followup x-ray will be required to look for improvement in effusions. The long-term prognosis remains guarded. Vigorous care to be continued. We will follow closely with you and decide on the need for further intervention. Chino Barrios MD
--- NOTE | 2018-05-30 12:05 | CP.PCM.CON ---
History of Present Illness - History of Present Illness History of Present Illness: Palliative consult requested by Dr Moisés Hill Reason: Advance care planning 77 year old male with history of dementia, Parkinson's disease who presented to ED on 05/18 18 with shortness of breath,low grade fevers, dyspnea on exertion and non productive cough. No history of chills, nausea, vomiting, diarrhea, chest/abdominal pain, diarrhea, headache. ER staff reported foul smelling urine. Work up revealed RUL pneumonia, bilateral pleural effusions, acute CHf. Negative for H Flu. Gonzalez cultures also negative. Echo 05/30 LVH, severely impaired systolic function, mod/severe aortic regurgitation, mod/severe mitral regurgitation, mild TR, mild pulmonary hypertension. PMHx: Dementia, Parkinson's disease, HTN,HLD, A fib,CVA. PSHx: pacemaker Social History: Former smoker, no alcohol or drug use. Lives with spouse. Family History: Non contributory. Advance Care Planning: The patient does not have an Advanced Directive. Review of Systems:As per HPI, unable to obtain patient is extremely lethargic Past Patient History - Infectious Disease Hx of Infectious Diseases: None - Past Medical History & Family History Past Medical History?: Yes - Past Social History Smoking Status: Never Smoked - CARDIAC Hx Cardiac Disorders: Yes Hx Hypertension: Yes - PULMONARY Hx Asthma: Yes - NEUROLOGICAL Hx Alzheimer's Disease: Yes - MUSCULOSKELETAL/RHEUMATOLOGICAL Hx Falls: No - GENITOURINARY/GYNECOLOGICAL Hx Prostate Problems: Yes - PSYCHIATRIC Hx Substance Use: No - SURGICAL HISTORY Hx Coronary Artery Bypass Graft: Yes (?) - ANESTHESIA Hx Anesthesia: Yes Hx Anesthesia Reactions: No Hx Malignant Hyperthermia: No Meds Allergies/Adverse Reactions: Allergies Allergy/AdvReac Type Severity Reaction Status Date / Time morphine Allergy RASH Verified 05/18/18 12:31 - Medications Medications: Current Medications Acetaminophen (Tylenol 325 Mg Supp) 325 mg RC DAILY [facility] Last Admin: 05/30/18 09:56 Dose: Not Given Acetaminophen (Tylenol 325mg Tab) 650 mg PO Q4H PRN PRN Reason: Pain, moderate (4-7) Last Admin: 05/30/18 09:57 Dose: 650 mg Albuterol/Ipratropium (Duoneb 3 Mg/0.5 Mg (3 Ml) Ud) 3 ml IH Q2H PRN PRN Reason: Shortness of Breath Albuterol/Ipratropium (Duoneb 3 Mg/0.5 Mg (3 Ml) Ud) 3 ml IH [id number] [facility] Last Admin: 05/30/18 07:54 Dose: 3 ml Amlodipine Besylate (Norvasc) 5 mg PO DAILY [facility] Last Admin: 05/30/18 09:56 Dose: 5 mg Aspirin (Aspirin Chewable) 81 mg PO DAILY [facility] Last Admin: 05/30/18 09:49 Dose: 81 mg Atorvastatin Calcium (Lipitor) 10 mg PO DIN [facility] Last Admin: 05/29/18 17:25 Dose: 10 mg Azithromycin (Zithromax) 500 mg PO DAILY [facility] Last Admin: 05/30/18 09:57 Dose: 500 mg Carvedilol (Coreg) 12.5 mg PO BID [facility] Last Admin: 05/30/18 09:49 Dose: 12.5 mg Digoxin (Digoxin) 0.125 mg PO 1400 [facility] Last Admin: 05/29/18 15:01 Dose: 0.125 mg Donepezil HCl (Aricept) 5 mg PO DAILY [facility] Last Admin: 05/30/18 09:49 Dose: 5 mg Guaifenesin (Robitussin) 100 mg PO Q6H PRN PRN Reason: Cough and congestion Last Admin: 05/30/18 01:50 Dose: 100 mg Cefepime HCl (Maxipime 1gm) 1 gm in 100 mls @ 100 mls/hr IVPB Q8 [facility]; Protocol Last Admin: 05/30/18 05:21 Dose: 100 mls/hr Vancomycin HCl (Vancomycin 1gm) 1 gm in 250 mls @ 167 mls/hr IVPB Q12H [facility]; Protocol Last Admin: 05/30/18 00:20 Dose: 167 mls/hr Lisinopril (Zestril) 5 mg PO DAILY [facility] Last Admin: 05/30/18 09:56 Dose: 5 mg Polyethylene Glycol (Miralax) 17 gm PO DAILY [facility] Last Admin: 05/30/18 09:56 Dose: 17 gm Tamsulosin HCl (Flomax) 0.4 mg PO DAILY [facility] Last Admin: 05/30/18 09:56 Dose: 0.4 mg Warfarin Sodium (Coumadin) 3 mg PO 1800 [facility]; Protocol Physical Exam - Constitutional Appears: Chronically Ill - Head Exam Head Exam: NORMOCEPHALIC - Eye Exam Eye Exam: Normal appearance, PERRL - ENT Exam ENT Exam: Mucous Membranes Moist - Neck Exam Neck exam: Positive for: Normal Inspection - Respiratory Exam Respiratory Exam: Decreased Breath Sounds, Rhonchi - Cardiovascular Exam Cardiovascular Exam: REGULAR RHYTHM, +S1, +S2 - GI/Abdominal Exam GI & Abdominal Exam: Normal Bowel Sounds, Soft - Exam Additional comments: incontinent - Extremities Exam Extremities exam: Positive for: pedal edema, pedal pulses present - Skin Skin Exam: Dry, Pallor - Additional Findings Additional findings: Palliative performance scale rating 30% Results - Vital Signs Recent Vital Signs: Last Vital Signs Temp 97.9 F 05/30/18 08:46 Pulse 73 05/30/18 09:56 Resp 20 05/30/18 08:46 BP 152/53 H 05/30/18 09:56 Pulse Ox 95 05/30/18 08:46 - Labs Result Diagrams: 05/30/18 06:00 05/30/18 06:00 Labs: Laboratory Results - last 24 hr 05/29/18 05/30/18 05/30/18 16:13 06:00 06:00 WBC 10.3 RBC 2.97 L Hgb 9.1 L Hct 28.2 L MCV 94.9 MCH 30.6 MCHC 32.3 RDW 13.6 Plt Count 313 MPV 10.4 Neut % (Auto) 75.4 H Lymph % (Auto) 10.7 L Price % (Auto) 9.6 H Eos % (Auto) 3.6 Baso % (Auto) 0.7 Lymph # (Auto) 1.1 L Price # (Auto) 1.0 H Eos # (Auto) 0.4 Baso # (Auto) 0.07 Absolute Neuts (auto) 7.75 H PT 39.4 H 30.5 H INR 3.55 H* 2.70 Sodium Potassium Chloride Carbon Dioxide Anion Gap BUN Creatinine Est GFR ( Amer) Est GFR (Non-Af Amer) Random Glucose Calcium Total Bilirubin AST ALT Alkaline Phosphatase Total Protein Albumin Globulin Albumin/Globulin Ratio 05/30/18 06:00 WBC RBC Hgb Hct MCV MCH MCHC RDW Plt Count MPV Neut % (Auto) Lymph % (Auto) Price % (Auto) Eos % (Auto) Baso % (Auto) Lymph # (Auto) Price # (Auto) Eos # (Auto) Baso # (Auto) Absolute Neuts (auto) PT INR Sodium 141 Potassium 4.5 Chloride 112 H Carbon Dioxide 30 Anion Gap 3 L BUN 23 H Creatinine 0.8 Est GFR ( Amer) > 60 Est GFR (Non-Af Amer) > 60 Random Glucose 96 Calcium 9.9 Total Bilirubin 0.6 AST 49 ALT 47 Alkaline Phosphatase 167 H Total Protein 6.9 Albumin 3.0 Globulin 3.9 Albumin/Globulin Ratio 0.8 L Assessment & Plan - Assessment and Plan (Free Text) Assessment: 77 year old male with history of HTN,HLD,CVA, dementia, Parkinson's disease who is admitted with anemia, RUL pneumonia, bilateral pleural effusions, and CHF exacerbation. Patient lethargic, altered, bed bound. Patient's son Delroy at bedside. Son states that he and his mother are patient 's primary care takers. Son recognizes decline in his fathers health. Son states that his father does not have an advanced directive. Advance care planning discussion ensued. Benefits and burdens of CPR/intubation explained. Son states that he would not want these measures done to to his father. Son does not want to make this decision without speaking with his mother. Son plans to have discussion with his mother regarding this topic. Son and I will resume our conversation tomorrow. Gaos of care and advance care planning, 30 minutes Plan: Goals of care and advance care planning RUL pneumonia; ID recs reviewed, to continue Zithromax, Vancomycin and Cefepime. Cardio; Continue Norvasc, Lipitor,ASA,Coreg and Digoxin Nebulizers as ordered. Continue Aricept
[2018-05-30] MEDS ORDERED: Iohexol 350 MG/100 ML VIAL ONE (12:33)
--- NOTE | 2018-05-30 14:02 | CT ---
Date of service: 05/30/2018 PROCEDURE: CT Chest without contrast HISTORY: Pneumonia follow up, labored breathing COMPARISON: 05/18/2018 TECHNIQUE: Contiguous axial images were obtained through the chest without intravenous contrast enhancement. Sagittal and coronal reconstructions were performed. Radiation dose: Total exam DLP = 1107.65 mGy-cm. This CT exam was performed using one or more of the following dose reduction techniques: Automated exposure control, adjustment of the mA and/or kV according to patient size, and/or use of iterative reconstruction technique. FINDINGS: LUNGS: There is a dense alveolar infiltrate in the right upper lobe. There is a patchy infiltrate in the left upper lobe. MEDIASTINUM: Unremarkable thoracic aorta. No aneurysm. Moderate cardiomegaly main pulmonary artery unremarkable. No vascular congestion. No lymphadenopathy. Aortic calcifications PLEURA: Moderate size right effusion. Small left effusion BONES: No fracture. No destructive lesion. UPPER ABDOMEN: Grossly unremarkable. OTHER FINDINGS: None. IMPRESSION: There is a dense alveolar infiltrate in the right upper lobe. There is a patchy infiltrate in the left upper lobe.
--- NOTE | 2018-05-30 14:07 | PN ---
DATE: 05/30/2018 SUBJECTIVE: The patient is 77-year-old, seen and examined. Looks more alert and answer simple question. no complaint of pain. PHYSICAL EXAMINATION: VITAL SIGNS: The patient is afebrile. Pulse 73, respiration 20 and blood pressure 152/53. LUNGS: Bilateral fair airflow. No rhonchi or crackle. HEART: S1 and S2, audible. ABDOMEN: Soft and nontender. No rebound. No guarding. NEUROLOGIC: The patient is awake and alert, but forgetful. LABORATORY DATA: WBC 7.3, hemoglobin 9.1, hematocrit 28.2 and platelet of 313. PT 30.5 and INR 2.70. Chemistry; sodium 141, potassium 4.5, chloride 112, CO2 of 30, BUN 23, creatinine 0.8 and blood sugar of 96. Blood culture and urine cultures are negative. Abdominal sonogram done on 05/27/2018 shows fatty liver and bilateral renal cyst. ASSESSMENT: 1. Resolving pneumonia. 2. Parkinson's disease. 3. Dementia. 4. Resolved abnormal liver function test. 5. Paroxysmal atrial fibrillation. 6. Hyperlipidemia. PLAN: The patient is currently on Zithromax. He is getting vancomycin. He is on Cefepime. I will order for CT of the chest. His vital signs seems to be stable. His pulse ox is well. According to his CT scan result. We will make further might send him home on p.o. antibiotics family does not want him to be in subacute rehab. Melany Hill MD
[2018-05-30] MEDS: Digoxin 125 mcg (0.125 mg) Tab PO SCH (14:44)
--- NOTE | 2018-05-30 14:45 | CP.PCM.PN ---
Subjective - Date & Time of Evaluation Date of Evaluation: 05/30/18 Time of Evaluation: 10:40 - Subjective Subjective: Comfortable, no fevers, not in distress Objective - Vital Signs/Intake and Output Vital Signs (last 24 hours): Temp Pulse Resp BP Pulse Ox 96.4 F L 70 20 155/62 H 96 05/29/18 06:00 05/29/18 09:20 05/29/18 06:00 05/29/18 09:20 05/29/18 06:00 Intake and Output: 05/29/18 05/29/18 06:59 18:59 Intake Total 440 Balance 440 - Medications Medications: Current Medications Acetaminophen (Tylenol 325 Mg Supp) 325 mg RC DAILY [facility] Last Admin: 05/29/18 09:18 Dose: Not Given Acetaminophen (Tylenol 325mg Tab) 650 mg PO Q4H PRN PRN Reason: Pain, moderate (4-7) Last Admin: 05/29/18 05:18 Dose: 650 mg Albuterol/Ipratropium (Duoneb 3 Mg/0.5 Mg (3 Ml) Ud) 3 ml IH Q2H PRN PRN Reason: Shortness of Breath Albuterol/Ipratropium (Duoneb 3 Mg/0.5 Mg (3 Ml) Ud) 3 ml IH [id number] [facility] Last Admin: 05/29/18 13:48 Dose: 3 ml Amlodipine Besylate (Norvasc) 5 mg PO DAILY [facility] Last Admin: 05/29/18 09:17 Dose: 5 mg Aspirin (Aspirin Chewable) 81 mg PO DAILY [facility] Last Admin: 05/29/18 09:14 Dose: 81 mg Atorvastatin Calcium (Lipitor) 10 mg PO DIN [facility] Last Admin: 05/28/18 17:59 Dose: 10 mg Azithromycin (Zithromax) 500 mg PO DAILY [facility] Last Admin: 05/29/18 09:20 Dose: 500 mg Carvedilol (Coreg) 12.5 mg PO BID [facility] Last Admin: 05/29/18 09:14 Dose: 12.5 mg Digoxin (Digoxin) 0.125 mg PO 1400 [facility] Last Admin: 05/28/18 13:10 Dose: 0.125 mg Donepezil HCl (Aricept) 5 mg PO DAILY [facility] Last Admin: 05/29/18 09:14 Dose: 5 mg Guaifenesin (Robitussin) 100 mg PO Q6H PRN PRN Reason: Cough and congestion Last Admin: 05/28/18 22:04 Dose: 100 mg Cefepime HCl (Maxipime 1gm) 1 gm in 100 mls @ 100 mls/hr IVPB Q8 [facility]; Protocol Last Admin: 05/29/18 05:04 Dose: 100 mls/hr Vancomycin HCl (Vancomycin 1gm) 1 gm in 250 mls @ 167 mls/hr IVPB Q12H [facility]; Protocol Last Admin: 05/29/18 13:07 Dose: 167 mls/hr Lisinopril (Zestril) 5 mg PO DAILY [facility] Last Admin: 05/29/18 09:20 Dose: 5 mg Tamsulosin HCl (Flomax) 0.4 mg PO DAILY [facility] Last Admin: 05/29/18 09:17 Dose: 0.4 mg Warfarin Sodium (Coumadin) 1 mg PO 1800 [facility] Last Admin: 05/28/18 17:59 Dose: 1 mg - Labs Labs: 05/28/18 06:15 05/28/18 06:15 PT 36.5 SECONDS (9.4-12.5) H 05/28/18 06:15 INR 3.23 05/28/18 06:15 APTT 46.2 Seconds (26.9-38.3) H 05/18/18 13:30 - Constitutional Appears: Chronically Ill - Head Exam Head Exam: NORMAL INSPECTION - Respiratory Exam Respiratory Exam: Decreased Breath Sounds - Cardiovascular Exam Cardiovascular Exam: +S1, +S2 - GI/Abdominal Exam GI & Abdominal Exam: Soft. absent: Tenderness Assessment and Plan - Assessment and Plan (Free Text) Plan: Assessment right sided HCAP, with risk for aspiration dementia Parkinson's disease S/P pacemaker placement Plan will continue Zithromax and continue Vancomycin and Cefepime day 3; repeat blood cx are negative so far, follow up MRSA screen, sputum cx; PCT is only 0.1 and if cultures continue to be negative, may d/c antibiotics in the next 24 hours will continue to monitor clinically
[2018-05-31] MEDS: Albuterol-Ipratrop 3 mg / 0.5 (3 ml) UD IH SCH ×4 (01:31→19:19)
[2018-05-31] MEDS: Cefepime 1gm in NS 100ml 1 GM/100 ML BAG IVPB SCH ×3 (05:30→22:02)
[2018-05-31] MEDS: POLYETHYLENE GLYCOL 3350 17 GM/Dose PACKET PO SCH (09:34)
[2018-05-31] MEDS: Vancomycin 1gm in NS 250ml 1 GM/250 ML BAG IVPB SCH ×2 (11:52→23:19)
--- NOTE | 2018-05-31 15:04 | PN ---
DATE: 05/31/2018 SUBJECTIVE: The patient is 77-year-old, seen and examined. He is still confused, disoriented and forgetful, answer simple question only, still has cough and congestion. PHYSICAL EXAMINATION: VITAL SIGNS: He is afebrile, pulse 73, respiration 20 and blood pressure 166/56. LUNGS: Bilateral soft crackle in upper lung region. HEART: S1 and S2, audible. ABDOMEN: Soft and nontender. No rebound. No guarding. NEUROLOGIC: He is awake and alert, but confused and disoriented. LABORATORY DATA: WBC 10.3, hemoglobin 9.1, hematocrit 28.2 and platelet of 313. PT is 30.5 and INR 2.70. Chemistry, no new lab available today. Blood culture and urine cultures are negative. CT scan of the chest was done yesterday, it shows right upper lobe and patchy infiltrate in the left upper lobe. ASSESSMENT: 1. Bilateral multilobar pneumonia. 2. Parkinson's disease. 3. Dementia. 4. Deconditioning and difficulty walking. 5. Chronic anemia. 6. Status post pacemaker placement. PLAN: Currently, the patient is on Zithromax, vancomycin and cefepime. Repeat blood cultures are negative. We will discuss with ID. If he need longer antibiotic, he might be transferred to TCU or he can be sent home in on p.o. antibiotics. Melany Hill MD
[2018-05-31] MEDS: Digoxin 125 mcg (0.125 mg) Tab PO SCH (15:27)
--- NOTE | 2018-05-31 23:41 | PN ---
DATE: 05/31/2018 SUBJECTIVE: The patient is seen in bed, in no acute distress, and nontoxic. No fevers. No chills. PHYSICAL EXAMINATION: VITAL SIGNS: The patient's temperature is 98, blood pressure is 150/60, and respiratory rate is 20. HEENT: Unremarkable. NECK: Supple. LUNGS: Decreased breath sounds. HEART: Normal S1 and S2. ABDOMEN: Soft. LABORATORY DATA: Reveals a white count of 10,000 and hemoglobin of 9. Microbiology is noted. ASSESSMENT AND PLAN: This is a 77-year-old male with right-sided healthcare-associated pneumonia, risk of aspiration, dementia, and Parkinson's, on Zithromax, vancomycin, and cefepime day #4. Coagulase negative cultures. His methicillin-resistant Staphylococcus aureus screen is pending. Influenza is negative. Procalcitonin negative. We will discontinue intravenous antibiotics for the next 24 hours. Atif Barbosa MD
[2018-06-01] MEDS: Albuterol-Ipratrop 3 mg / 0.5 (3 ml) UD IH SCH ×4 (01:22→19:31)
[2018-06-01] MEDS: guaiFENesin 200 mg/10 ml Syrup UD PO PRN (04:20)
[2018-06-01] MEDS: Albuterol-Ipratrop 3 mg / 0.5 (3 ml) UD IH PRN (04:29)
[2018-06-01] MEDS: Cefepime 1gm in NS 100ml 1 GM/100 ML BAG IVPB SCH ×2 (05:53→13:40)
[2018-06-01] MEDS: POLYETHYLENE GLYCOL 3350 17 GM/Dose PACKET PO SCH (09:24)
[2018-06-01] MEDS: Digoxin 125 mcg (0.125 mg) Tab PO SCH (13:40)
[2018-06-01] MEDS: Vancomycin 1gm in NS 250ml 1 GM/250 ML BAG IVPB SCH (13:43)
[2018-06-01 13:45] VITALS: PULSE 72
--- NOTE | 2018-06-01 17:38 | PN ---
DATE: 06/01/2018 SUBJECTIVE: The patient is 77 years old, seen and examined. He is awake, alert, able to communicate, eating little better. Has cough. PHYSICAL EXAMINATION: VITAL SIGNS: He is afebrile, pulse 70, respirations 20, and blood pressure 154/67. LUNGS: Bilateral fair airflow. Few occasional expiratory rhonchi in the upper lung region. HEART: S1 and S2 audible. ABDOMEN: Soft and nontender. No rebound, no guarding. NEUROLOGIC: He is awake and alert, but confused, disoriented. LABORATORY DATA: No new labs available today. ASSESSMENT: 1. Bilateral upper lobe pneumonia. 2. Hypertension. 3. Parkinson's disease. 4. Dementia. 5. Status post pacemaker defibrillator placement. PLAN: So plan is, ID input noted. Antibiotic will be discontinued. We will monitor his fever pattern. If he remains asymptomatic and afebrile, possible discharge plan Sunday. Melany Hill MD
[2018-06-01] MEDS: Mupirocin 2% Ointment 15 GM TUBE TOP SCH (18:05)
--- NOTE | 2018-06-01 19:42 | PN ---
DATE: 06/01/2018 SUBJECTIVE: The patient is in bed, in no acute distress, nontoxic. PHYSICAL EXAMINATION: VITAL SIGNS: Temperature is 97, blood pressure is 150/60, respiratory rate 20. HEENT: Unremarkable. NECK: Supple. LUNGS: Have decreased breath sounds. HEART: Normal S1 and S2. ABDOMEN: Soft. LABORATORY DATA: Examination reveals a white count is 10,300, hemoglobin of 9. Coagulation is noted. Chemistries are noted and procalcitonin is 0.10. Urinalysis is noted. Digoxin level 1.7. Influenza is negative. Microbiology reveals MRSA screen is positive. Blood cultures are negative. Urine cultures are negative. The patient had a CAT scan of the chest on the , dense infiltrate in the right upper lobe. MEDICATIONS: Review of orders reveals the patient to be on p.o. Zithromax, which requires renewal. IV vancomycin, which was discontinued.. The patient is also on cefepime. ASSESSMENT AND PLAN: This is a 77-year-old male with right-sided healthcare-associated pneumonia risk of aspiration, dementia, Parkinson's, day #5 of cefepime and vancomycin and Zithromax. We will can discontinue vancomycin and cefepime and Zithromax. The patient has normal procalcitonin. We will use p.o. doxycycline and repeat the procalcitonin. We will follow with you. Atif Barbosa MD
[2018-06-02] MEDS: Albuterol-Ipratrop 3 mg / 0.5 (3 ml) UD IH SCH ×4 (03:01→19:36)
[2018-06-02] MEDS: Albuterol-Ipratrop 3 mg / 0.5 (3 ml) UD IH PRN (05:10)
[2018-06-02 07:45] LABS: INR 2.18; PROTHROMBIN TIME 24.6 SECONDS (9.4-12.5)
[2018-06-02 07:46] LABS: BASO # 0.07 {null, K/mm3} (0.0-2.0); BASO % 0.8 % (0.0-3.0); EOS # 0.5 (0.0-0.7); EOS % 5.4 % (1.5-5.0); HEMOGLOBIN 9.2 g/dL (14.0-18.0); LYMPH # 1.2 (1.2-3.4); LYMPH % 13.5 % (22.0-35.0); MEAN CORPUSCULAR HEMOGLOBIN 30.5 pg (25.0-35.0); MEAN CORPUSCULAR HGB CONC 32.1 g/dl (31.0-37.0); MEAN PLATELET VOLUME 10.4 fl (7.0-11.0); MONO # 0.8 (0.1-0.6); MONO % 8.4 % (1.0-6.0); RBC 3.02 {null, 10^6/uL} (3.5-6.1); RED CELL DISTRIBUTION WIDTH 13.9 % (11.5-14.5); WHITE BLOOD COUNT 9.1 {null, 10^3/uL} (4.5-11.0)
[2018-06-02 09:04] VITALS: RESP 20
[2018-06-02] MEDS: Mupirocin 2% Ointment 15 GM TUBE TOP SCH ×2 (09:47→17:30)
[2018-06-02] MEDS: POLYETHYLENE GLYCOL 3350 17 GM/Dose PACKET PO SCH (09:48)
[2018-06-02 16:25] VITALS: O2SAT 95
--- NOTE | 2018-06-02 16:35 | PN ---
DATE: 06/02/2018 SUBJECTIVE: The patient is in bed in no acute distress, nontoxic. PHYSICAL EXAMINATION VITAL SIGNS: The patient's temperature is 98 and blood pressure is 160/60, respiratory rate 20, heart rate of 73. HEENT: Examination of HEENT is unremarkable. NECK: Supple. LUNGS: Have decreased breath sounds. HEART: Normal S1 and S2. ABDOMEN: Soft, nontender. LABORATORY DATA: Laboratory examination reveals a white count of 9.1, hemoglobin of 9. Chemistries reveal a BUN of 23, creatinine of 0.8. Urinalysis is noted and toxicology is reviewed. Microbiology is noted. Review of orders reveals the patient to be on mupirocin and p.o. doxycycline. ASSESSMENT AND PLAN: This is a 77-year-old male who was seen in room 377, bed 1 with right-sided healthcare-associated pneumonia, risk for aspiration, dementia, Parkinson's. He has completed vancomycin, cefepime and Zithromax, and on p.o. doxycycline with a normal procalcitonin. Atif Barbosa MD
[2018-06-02] MEDS: Digoxin 125 mcg (0.125 mg) Tab PO SCH (17:29)
--- NOTE | 2018-06-02 20:56 | PN ---
DATE: 06/02/2018 SUBJECTIVE: The patient is 77 years old, seen and examined. Confused, disoriented. Family is at bedside. Eating fair. Still has fair cough. PHYSICAL EXAMINATION: VITAL SIGNS: He is afebrile, pulse 73, respirations 20, and blood pressure 162/62. LUNGS: Bilateral fair airflow. Occasional soft crackles upon coughing. HEART: S1 and S2 audible. ABDOMEN: Soft, nontender. No rebound, no guarding. NEUROLOGIC: The patient is awake and alert, but confused, disoriented. Not communicating that well. EXTREMITIES: Bilateral legs, no edema. LABORATORY DATA: WBC 9.1, hemoglobin 9.2, hematocrit 28.7, and platelets 331. PT 24.6, INR 2.18. Chemistries: Sodium 141, potassium 4.5, chloride 112, CO2 30, BUN 23, creatinine 0.8, blood sugar of 96. Procalcitonin 0.06. Digoxin level 1.7. Flu test is negative. Repeat CT of the chest had bilateral infiltrates. ASSESSMENT: 1. Altered mental status. 2. Bilateral upper lobe pneumonia. 3. History of dementia. 4. Parkinson's disease. 5. Deconditioning and difficulty walking. PLAN: The patient is currently off of antibiotics, has been started on p.o. doxycycline, and if he remains stable, discharge plan in the a.m. The patient's family does not want him to go to subacute rehab and his antibiotic has been discontinued. According to the patient's who is at the bedside, at the point upon discharge he needs to be going by ambulance because they live in . Melany Hill MD (Delete this signature block when dictator is a preceptor.)
[2018-06-03] MEDS: Albuterol-Ipratrop 3 mg / 0.5 (3 ml) UD IH SCH ×3 (01:48→13:00)
[2018-06-03] MEDS: guaiFENesin 200 mg/10 ml Syrup UD PO PRN (05:11)
[2018-06-03] MEDS: Albuterol-Ipratrop 3 mg / 0.5 (3 ml) UD IH PRN (05:24)
--- NOTE | 2018-06-03 06:04 | CP.PCM.PN ---
Subjective - Date & Time of Evaluation Date of Evaluation: 06/03/18 Time of Evaluation: 06:03 - Subjective Subjective: # 24 angiocath was inserted in right hand. Patient has no c/o. VSS. Objective - Vital Signs/Intake and Output Vital Signs (last 24 hours): Temp Pulse Resp BP Pulse Ox 98.4 F 69 20 146/68 95 06/02/18 17:21 06/02/18 17:21 06/02/18 17:21 06/02/18 17:21 06/02/18 16:00 Intake and Output: 06/02/18 06/03/18 18:59 06:59 Intake Total 360 Balance 360 - Medications Medications: Current Medications Acetaminophen (Tylenol 325 Mg Supp) 325 mg RC DAILY [facility] Last Admin: 06/02/18 09:33 Dose: Not Given Acetaminophen (Tylenol 325mg Tab) 650 mg PO Q4H PRN PRN Reason: Pain, moderate (4-7) Last Admin: 06/01/18 22:25 Dose: 650 mg Albuterol/Ipratropium (Duoneb 3 Mg/0.5 Mg (3 Ml) Ud) 3 ml IH Q2H PRN PRN Reason: Shortness of Breath Last Admin: 06/03/18 05:24 Dose: 3 ml Albuterol/Ipratropium (Duoneb 3 Mg/0.5 Mg (3 Ml) Ud) 3 ml IH [id number] [facility] Last Admin: 06/03/18 01:48 Dose: 3 ml Amlodipine Besylate (Norvasc) 5 mg PO DAILY [facility] Last Admin: 06/02/18 09:48 Dose: 5 mg Aspirin (Aspirin Chewable) 81 mg PO DAILY [facility] Last Admin: 06/02/18 09:48 Dose: 81 mg Atorvastatin Calcium (Lipitor) 10 mg PO DIN [facility] Last Admin: 06/02/18 17:29 Dose: 10 mg Carvedilol (Coreg) 12.5 mg PO BID [facility] Last Admin: 06/02/18 17:29 Dose: 12.5 mg Digoxin (Digoxin) 0.125 mg PO 1400 [facility] Last Admin: 06/02/18 17:29 Dose: 0.125 mg Donepezil HCl (Aricept) 5 mg PO DAILY [facility] Last Admin: 06/02/18 09:47 Dose: 5 mg Doxycycline Hyclate (Doryx) 100 mg PO Q12 [facility]; Protocol Stop: 06/06/18 22:01 Last Admin: 06/02/18 23:20 Dose: 100 mg Fentanyl (Duragesic) 1 patch TD Q72H [facility] Last Admin: 06/02/18 12:15 Dose: 1 patch Guaifenesin (Robitussin) 100 mg PO Q6H PRN PRN Reason: Cough and congestion Last Admin: 06/03/18 05:11 Dose: 100 mg Lisinopril (Zestril) 5 mg PO DAILY [facility] Last Admin: 06/02/18 09:48 Dose: 5 mg Mupirocin (Bactroban Ointment) 1 gm TOP BID [facility] Stop: 06/05/18 18:00 Last Admin: 06/02/18 17:30 Dose: 1 applic Polyethylene Glycol (Miralax) 17 gm PO DAILY [facility] Last Admin: 06/02/18 09:48 Dose: 17 gm Tamsulosin HCl (Flomax) 0.4 mg PO DAILY [facility] Last Admin: 06/02/18 09:48 Dose: 0.4 mg Warfarin Sodium (Coumadin) 3 mg PO 1800 [facility]; Protocol Last Admin: 06/02/18 17:29 Dose: 3 mg - Labs Labs: 06/02/18 07:00 05/30/18 06:00 PT 24.6 SECONDS (9.4-12.5) H 06/02/18 07:00 INR 2.18 06/02/18 07:00 APTT 46.2 Seconds (26.9-38.3) H 05/18/18 13:30
[2018-06-03 08:54] VITALS: BP 160/64; PULSE 72; TEMP 98.6
[2018-06-03] MEDS: Mupirocin 2% Ointment 15 GM TUBE TOP SCH (10:19)
[2018-06-03] MEDS: POLYETHYLENE GLYCOL 3350 17 GM/Dose PACKET PO SCH (10:21)
--- NOTE | 2018-06-03 11:11 | PN ---
DATE: 06/03/2018 SUBJECTIVE: The patient is in bed, in no acute distress, nontoxic. PHYSICAL EXAMINATION: VITAL SIGNS: Temperature is 98, blood pressure is 160/60, and respiratory rate of 20. HEENT: Unremarkable. NECK: Supple. LUNGS: Have decreased breath sounds. HEART: Normal S1 and S2. ABDOMEN: Soft and nontender. LABORATORY DATA: Examination reveals a white count of 9.1 and hemoglobin of 9. Chemistries are noted and procalcitonin 0.06. The microbiology is noted. The nares MRSA screen is noted. MEDICATIONS: Review of orders reveals the patient to be on no antibiotics. ASSESSMENT AND PLAN: This is a 77-year-old male with right-sided healthcare-associated pneumonia and risk for aspiration, dementia, Parkinson's disease. Has completed the antibiotics and currently on p.o. doxycycline. Atif Barbosa MD
--- NOTE | 2018-06-03 23:38 | DS ---
HISTORY OF PRESENT ILLNESS: Patient is 77 years old, was brought to emergency room by the family when he was having cough, congestion and shortness of breath. PAST MEDICAL HISTORY: 1. Previous CVA. 2. Dementia. 3. Deconditioning and difficulty walking, he hardly stands up to get out of bed to chair, he is not very mobile. 4. Parkinson disease. 5. Hypertension. 6. Hyperlipidemia. 7. History of benign prostatic hypertrophy. The patient had CT scan of the chest done, was found to have bilateral pneumonia, was treated with IV antibiotics. ID was involved. Field Director was involved. Patient remained on IV steroid, nebulizer treatment. Started to do well. He finished almost 12 days of antibiotics, did well. So, he is being discharged home today. PHYSICAL EXAMINATION: GENERAL: He is confused and disoriented. VITAL SIGNS: Afebrile, pulse 72, respirations 20, and blood pressure 160/64. LUNGS: Bilateral fair airflow. No rhonchi or crackle. HEART: S1 and S1 audible. ABDOMEN: Soft. Not obese. Nontender. EXTREMITIES: Bilateral leg, no edema. NEUROLOGIC: He is awake and alert, but confused. LABORATORY DATA: PT is and INR 2.18. ASSESSMENT: 1. Status post community acquired pneumonia. 2. Parkinson disease. 3. Dementia. 4. Deconditioning. 5. Difficulty walking. 6. Paroxysmal atrial fibrillation. PLAN: He will continue all his medication as prior to admission including amlodipine 5 mg daily, Coumadin 6 mg daily, Flomax 0.4 mg daily, simvastatin 20 mg at bedtime, Lasix 40 mg daily, enalapril 5 mg daily, Aricept 5 mg daily, digoxin 0.125 mg daily, carvedilol 12.5 mg twice a day, and aspirin 81 mg daily. He is given a prescription of doxycycline. He will finish 5 more days of antibiotic and he is given nebulizer machine and he will follow up with his PMD. His family will take back to him evaluation. Melany Hill MD
--- NOTE | 2018-06-05 10:12 | PQF ---
PROVIDER RESPONSE TEXT: Chronic combined REVIEWER QUERY TEXT: CHF Acuity and Type Congestive Heart Failure is documented in the Medical Record. Please document the type and acuity (in cludes probable or suspected) Such as: Type: -- Systolic -- Diastolic -- Combined -- Other, please specify Acuity: -- Acute -- Chronic -- Acute on chronic -- Other, please specify Also please document the underlying cause of the CHF (includes probable or suspected) The patient's Clinical Indicators include: Please specify type and acuity of CHF. Query created by: Capri Torres on 06/04/2018 11:22 AM Electronically signed by: Melany Hill MD 06/05/2018 10:09 AM
== END 2018-06-03 16:10 | disposition home health service (06) | DRG 193 ==
LOC: ED 12:16 → ERH 14:54 → 3RSO 19:08
PROVIDERS: ADMIT Internal Medicine; ATTEND Internal Medicine
PROC: 3E0F7GC Introduction of Other Therapeutic Substance into Respiratory Tract, Via Natural or Artificial Opening (ICD-10-PCS; principal; 2018-05-19)
DX: J18.1 Lobar pneumonia, unspecified organism (principal); G93.41 Metabolic encephalopathy; I50.42 Chronic combined systolic (congestive) and diastolic (congestive) heart failure; Y95 Nosocomial condition; I48.0 Paroxysmal atrial fibrillation; I48.2 Chronic atrial fibrillation; G20 Parkinson's disease; F02.80 Dementia in other diseases classified elsewhere, unspecified severity, without behavioral disturbance, psychotic disturbance, mood disturbance, and anxiety; G30.9 Alzheimer's disease, unspecified; E86.0 Dehydration; I11.0 Hypertensive heart disease with heart failure; I27.20 Pulmonary hypertension, unspecified; I08.0 Rheumatic disorders of both mitral and aortic valves; N40.1 Benign prostatic hyperplasia with lower urinary tract symptoms; N39.498 Other specified urinary incontinence; E78.5 Hyperlipidemia, unspecified; R26.2 Difficulty in walking, not elsewhere classified; D64.9 Anemia, unspecified; J45.909 Unspecified asthma, uncomplicated; Z86.73 Personal history of transient ischemic attack (TIA), and cerebral infarction without residual deficits; Z95.810 Presence of automatic (implantable) cardiac defibrillator; Z87.891 Personal history of nicotine dependence; Z74.01 Bed confinement status